=== PATIENT | female | born 2000 | race Caucasian/White ===

== ENCOUNTER 2020-06-22 16:05 | Emergency (ER) | payer BC, SELFPAY ==
[2020-06-22 17:05] VITALS: BP 122/77; PULSE 91; RESP 19; TEMP 36.8; O2SAT 100; BMI 32.3
--- NOTE | 2020-06-22 17:28 | HMH.EDUTC ---
[facility] [place] Clinical Impression: Allergic reaction Qualifiers: Encounter type: initial encounter Qualified Code(s): T78.40XA - Allergy, unspecified, initial encounter Contact dermatitis Qualifiers: Contact dermatitis type: allergic Contact dermatitis trigger: unspecified trigger Qualified Code(s): L23.9 - Allergic contact dermatitis, unspecified cause Disposition: Home, Self-Care Condition on Discharge: Good Instructions: DI for General Allergic Reactions Additional Instructions: Avoid contact with the offending substance (poison jj). Don't start the oral steroids until tomorrow. Follow up with your regular doctor. GO TO THE ER FOR ANY WORSENING SYMPTOMS OR CONCERNS Prescriptions: diphenhydrAMINE HCL [Diphenhydramine HCl] 25 mg PO Q6HP PRN #30 cap PRN Reason: Itching Transmission Status: Re[facility] by [id number] methylPREDNISolone [Medrol] 4 mg PO DIRECTED 6 Days #21 tab.ds.pk Transmission Status: Received by [id number] Referrals: Hitesh Bocanegra MD [Primary Care Provider] - Forms: Work/School Release Time of Disposition: 17:50 Medical Decision Making - Medical Records Medical records reviewed: No: I reviewed the patient's medical records. - Win Inquiry Pt receiving controlled substance: No Vital Signs: 06/22/20 17:05 06/22/20 17:56 Temperature 98.2 F 98.2 F Temperature Source Oral Pulse Rate 91 H Pulse Rate [Right Brachial] 91 H Respiratory Rate 19 19 Blood Pressure 122/77 Blood Pressure [Right Arm] 122/77 Blood Pressure Mean [Right Arm] 92 Blood Pressure Source [Right Arm] Automatic Cuff Blood Pressure Position [Right Arm] Sitting 02 Sat by Pulse Oximetry 100 Oxygen Delivery Method Room Air Orders (Tests/Meds): ED MEDICATIONS Discontinued Medications Generic Name Dose Route Start Last Admin Trade Name Freq PRN Reason Stop Dose Admin Methylprednisolone Sodium Succinate 125 mg 06/22/20 17:31 06/22/20 17:40 Methylprednisolone Sod Succ 125mg Vial IM 06/22/20 17:32 125 mg ONCE ONE Administration [facility] [place] - General Stated complaint: rash Time Seen by Provider: 06/22/20 17:29 Mode of Arrival: Ambulatory Source of Information: Patient Limitations: No Limitations Description of Symptoms (Recalled from Triage Doc. by RN): PATIENT C/O RASH TO NECK, CHEST AND FACE X 1 WEEK HEENT Symptoms (Recalled from RN notes): No Resp Symptoms (Recalled from RN notes): No Skin Symptoms (Recalled from RN notes): Yes MS Symptoms (Recalled from RN notes): No Functional Status (Recalled from RN notes): WNL - History of Present Illness Provider Complaint: She states that for the past 1 day she has had itching and rash of her face, anterior neck and upper chest. She believes that she has came into contact with something that she is allergic to. - Related Data Home Medications Medication Instructions Recorded Confirmed Metformin HCl 500 mg PO BID 06/22/20 06/22/20 Spironolactone [Spironolactone 25 mg PO DAILY 06/22/20 06/22/20 25mg Tablet] norgestimate-ethinyl estradioL 1 each PO DAILY 06/22/20 06/22/20 [Sprintec 28 Day Tablet] Previous Rx's Medication Instructions Recorded diphenhydrAMINE HCL 25 mg PO Q6HP PRN #30 cap 06/22/20 [Diphenhydramine HCl] methylPREDNISolone [Medrol] 4 mg PO DIRECTED 6 Days #21 06/22/20 tab.ds.pk Allergies Allergy/AdvReac Type Severity Reaction Status Date / Time No Known Allergies Allergy Verified 06/22/20 17:20 - Worker's Comp Is this a Worker's Comp case?: No [facility] History - Hepatitis A Screen Drug use history?: No High risk sexual behaviors?: No History of sexually transmitted infection?: No Currently employed?: No Childcare worker?: No Do you have indoor plumbing?: Yes Do you have electricity?: Yes Attestation statement:: This patient has been screened for Hepatitis A risk factors. I have reviewed the patient's past medical history: Yes - Social Histo
[2020-06-22 17:56] VITALS: BP 122/77; PULSE 91; RESP 19; TEMP 36.8; O2SAT 100
== END 2020-06-22 18:00 | disposition home or self-care (01) ==
PROVIDERS: Emergency Provider Nurse Practitioner Family; PCP Family Medicine
DX: L23.9 Allergic contact dermatitis, unspecified cause (principal); T78.40XA Allergy, unspecified, initial encounter; E11.9 Type 2 diabetes mellitus without complications; Z79.84 Long term (current) use of oral hypoglycemic drugs
CPT/HCPCS: 96372; 99202; G0463

== ENCOUNTER 2021-04-26 12:20 | Emergency (ER) | payer BC, SELFPAY ==
[2021-04-26] VITALS (7 sets, daily range): BP systolic 116–145; BP diastolic 59–85; PULSE 84–112; RESP 16–18; TEMP 36.8–36.9; O2SAT 95–100; BMI 32.3
--- NOTE | 2021-04-26 12:40 | HMH.EDGENADL ---
ED Disposition Clinical Impression: Epigastric pain Diarrhea Qualifiers: Diarrhea type: unspecified type Qualified Code(s): R19.7 - Diarrhea, unspecified Disposition: Home, Self-Care Condition on Discharge: Fair Instructions: DI for Acute Abdominal Pain, DI for Diarrhea and Traveler's Diarrhea -- Adult Additional Instructions: Pepcid as prescribed. Loperamide as needed for diarrhea. Additional instructions for ABDOMINAL PAIN: See your physician as soon as possible for further evaluation. Return immediately if worsening abdominal pain, bloody diarrhea, vomiting, shortness of breath, fever, vomiting of blood or abdominal distention. Prescriptions: Loperamide HCl [Loperamide] 2 mg PO TIDP PRN #10 tab PRN Reason: Diarrhea Transmission Status: [id number] Ondansetron [Zofran 4mg ODT] 4 mg PO TIDP PRN #10 tab PRN Reason: Nausea And Vomiting Transmission Status: P[id number] Referrals: Alexsander Calderón MD [Primary Care Provider] - - Critical Care Critical Care Time: No Attestation: On 04/26/21, the high probability of a clinically significant, sudden or life threatening deterioration of the following system(s) required my full and direct attention, intervention and personal management. The time I documented below is in addition to time spent performing reported procedures but includes the following listed in this critical care notation. Medical Decision Making - Win Inquiry Pt receiving controlled substance: No Vital Signs: 04/26/21 12:20 04/26/21 13:06 04/26/21 13:30 Temperature 98.4 F Temperature Source Oral Pulse Rate 100 H 87 Pulse Rate [Right Radial] 112 H Respiratory Rate 16 Blood Pressure 135/85 116/67 Blood Pressure [Right Arm] 145/84 H Blood Pressure Mean 98 83 Blood Pressure Mean [Right Arm] 104 Blood Pressure Source [Right Arm] Automatic Cuff Blood Pressure Position [Right Arm] Sitting 02 Sat by Pulse Oximetry 99 95 100 Oxygen Delivery Method Room Air Room Air Room Air 04/26/21 14:00 04/26/21 14:30 04/26/21 15:00 Temperature Temperature Source Pulse Rate 85 89 87 Pulse Rate [Right Radial] Respiratory Rate Blood Pressure 119/72 116/75 135/59 L Blood Pressure [Right Arm] Blood Pressure Mean 88 92 Blood Pressure Mean [Right Arm] Blood Pressure Source [Right Arm] Blood Pressure Position [Right Arm] 02 Sat by Pulse Oximetry 100 98 100 Oxygen Delivery Method - Lab Data Lab Results 04/26/21 12:29: Urine Color Yellow, Urine Appearance Clear, Urine pH 6.0, Ur Specific Aurora >= 1.030, Urine Protein Negative, Urine Glucose (UA) Negative, Urine Ketones Negative, Urine Blood 1+, Urine Nitrate Negative, Urine Bilirubin Negative, Urine Urobilinogen 0.2, Ur Leukocyte Esterase Negative, Urine RBC 3-5, Urine WBC None, Ur Squamous Epith Cells 3-5, Urine Bacteria Trace 04/26/21 12:29: Urine HCG, Qual Negative 04/26/21 12:37: WBC 13.0 H, RBC 4.79, Hgb 14.0, Hct 41.4, MCV 86.4, MCH 29.2, MCHC 33.8, RDW 13.3, Plt Count 436 H, MPV 7.4, Neut % (Auto) 80.5 H, Lymph % (Auto) 14.1, [place] % (Auto) 3.9, Eos % (Auto) 0.7, Baso % (Auto) 0.8, Neut # (Auto) 10.4 H, Lymph # (Auto) 1.8, [place] # (Auto) 0.5, Eos # (Auto) 0.1, Baso # (Auto) 0.1 04/26/21 12:37: Sodium 135 L, Potassium 4.1, Chloride 102, Carbon Dioxide 26, Anion Gap 11.1, BUN 7, Creatinine 0.60, Estimated Creat Clear 209, Estimated GFR 124, Est GFR ( Amer) 150, Glucose 97, Calcium 8.5, Total Bilirubin 0.4, AST 25, ALT 23, Alkaline Phosphatase 50, Total Protein 7.5, Albumin 4.7, Globulin 2.8, Albumin/Globulin Ratio 1.7, Lipase 38 Result diagrams: 04/26/21 12:37 04/26/21 12:37 Orders (Tests/Meds): ED MEDICATIONS Generic Name Dose Route Start Last Admin Trade Name Freq PRN Reason Stop Dose Admin Sodium Chloride 10 ml 04/26/21 12:38 Sodium Chloride 0.9% 10ml Flush Syringe IV 05/26/21 12:37 NEEDED PRN Maintain IV Site Sodium
--- NOTE | 2021-04-26 12:42 | PC.NURSE ---
Pt in room, iv and blood and urine done
--- NOTE | 2021-04-26 12:47 | CT_ITS ---
FINAL REPORT CLINICAL HISTORY: abdominal pain, luq pain FINDINGS: CT OF THE ABDOMEN AND PELVIS WITH CONTRAST Axial CT images of the abdomen and pelvis were obtained after the administration of intravenous contrast. Coronal reformatted images were also obtained and reviewed.This study was performed with techniques to keep radiation doses as low as reasonably achievable (ALARA). Individualized dose reduction techniques using automated exposure control or adjustment of mA and/or kV according to the patient's size were employed. Abdomen: The lung bases are clear. The heart is normal in size. The liver has an unremarkable appearance, without evidence of mass or biliary ductal dilatation. There is mild nonspecific gallbladder wall thickening. The spleen is unremarkable. No adrenal mass is present. The pancreas has an unremarkable appearance. The kidneys are normal, without evidence of mass or hydronephrosis. The aorta is normal in caliber. There is no free fluid or adenopathy. No mass or abnormal fluid collection is seen. Pelvis: The appendix is normal. The urinary bladder is unremarkable. No inflammatory process is seen. There is no evidence of mass or adenopathy. There is no evidence of bowel obstruction. IMPRESSION: Mild nonspecific gallbladder wall thickening. Reviewed, Interpreted and Dictated by Kike Hayden III, MD Transcribed by Kevin Ruiz Authenticated by Kike Hayden III, MD on 04/26/2021 02:42:37 PM [facility]
[2021-04-26 12:53] LABS: Basophils # 0.1 K/mm3 (0-0.2); Basophils % 0.8 % (0.1-2.0); Eosinophils # 0.1 K/mm3 (0.0-0.4); Eosinophils % 0.7 % (0.1-12.0); Hematocrit 41.4 % (37.0-47.0); Lymphocytes # 1.8 K/mm3 (0.7-4.5); Lymphocytes % 14.1 % (10-50); Mean Corpuscular HGB Conc 33.8 g/dL (31.8-35.4); Mean Corpuscular Hemoglobin 29.2 pg (27.0-31.2); Mean Corpuscular Volume 86.4 fl (81-99); Mean Platelet Volume 7.4 fl (7.4-10.4); Monocytes # 0.5 K/mm3 (0.1-1.0); Monocytes % 3.9 % (1.7-9.3); Neutrophils # 10.4 K/mm3 (1.8-7.8); Neutrophils % 80.5 % (37.0-80.0); Platelet Count 436 K/mm3 (142-424); Red Blood Count 4.79 M/mm3 (4.20-5.40); Red Cell Distribution Width 13.3 % (11.5-17.5)
[2021-04-26 12:54] LABS: Microscopic, Urine URINE MICROSCOPIC (MICROSCOPIC)
[2021-04-26 12:56] LABS: Appearance,Urine CLEAR (Clear); Bilirubin,Urine Negative (Negative); Blood, Urine 1+ (Negative); Color,Urine YELLOW (Yellow); Glucose,Urine (UA) Negative (Negative); Ketones,Urine Negative (Negative); Leukocyte Esterase,Urine Negative (Negative); Nitrate,Urine Negative (Negative); Protein,Urine Negative (Negative); Specific Gravity, Urine >= 1.030 (1.005-1.030); Urine Pregnancy, HCG Qual. Negative (Negative); Urobilinogen,Urine 0.2 EU/dl (0.2)
[2021-04-26 12:56] LABS: Chloride 102 mmol/L (98-107); Potassium 4.1 mmoL/L (3.5-5.1); Sodium 135 mmol/L (136-145)
[2021-04-26 12:58] LABS: Blood Urea Nitrogen 7 mg/dl (7-17); Creatinine Clearance Estimated 209 mL/min (50-200); Estimated Glomerular Filt Rate 124 ml/min (>60); GFR (African American) 150 ML/MIN (>60)
[2021-04-26 12:59] LABS: Alanine Aminotransferase 23 U/L (12-78); Albumin Level 4.7 g/dl (3.5-5.0); Albumin/Globulin Ratio 1.7 (1.1-1.8); Alkaline Phosphatase 50 U/L (38-126); Anion Gap 11.1 mEq/L (5-15); Aspartate Amino Transferase 25 U/L (14-36); Bilirubin,Total 0.4 mg/dl (0.2-1.3); Calcium 8.5 mg/dl (8.4-10.2); Carbon Dioxide 26 mmol/L (22.0-30.0); Globulin 2.8 g/dL (1.3-3.2); Glucose 97 mg/dl (74-100); Lipase 38 U/L (23-300); Total Protein,Serum 7.5 g/dl (6.3-8.2)
[2021-04-26 13:09] LABS: Bacteria,Urine Trace /lpf
--- NOTE | 2021-04-26 13:17 | PC.NURSE ---
pt gone to ct
--- NOTE | 2021-04-26 14:35 | PC.NURSE ---
pt in room
--- NOTE | 2021-04-26 14:54 | PC.NURSE ---
Notified rad of order for gallbladder US. Pt stated that she had some crackers at approx 0800 this AM and nothing PO since. Rad notified.
--- NOTE | 2021-04-26 15:13 | US_ITS ---
FINAL REPORT CLINICAL HISTORY: epigastric pain, thickened gb wall on CT FINDINGS: Sonographic images of the right upper quadrant were obtained. The pancreas is obscured. The liver is fatty infiltrated. There is a small amount of sludge in the gallbladder. There is no evidence of biliary ductal dilatation.The common duct measures 2 mm. Limited images of the right kidney are unremarkable. IMPRESSION: Fatty liver. Small amount of sludge in the gallbladder. Reviewed, Interpreted and Dictated by Kike Hayden III, MD Transcribed by Kevin Ruiz Authenticated by Kike Hayden III, MD on 04/26/2021 04:14:[address] [facility]
--- NOTE | 2021-04-26 15:34 | PC.NURSE ---
pt to radiology for ultrasound via wheelchair
== END 2021-04-26 16:24 | disposition home or self-care (01) ==
PROVIDERS: Emergency Provider Emergency Medicine; PCP Family Medicine
DX: R10.13 Epigastric pain (principal); R19.7 Diarrhea, unspecified
CPT/HCPCS: 74177; 76705; 80053; 81001; 81025; 83690; 85025; 96365; 96375; 99284; Q9967

== ENCOUNTER → 2022-03-14 12:04 | Outpatient (CLI) | payer BC, SELFPAY ==
--- NOTE | 2022-03-14 12:12 | XR_ITS ---
FINAL REPORT CLINICAL HISTORY: BACK PAIN FINDINGS: THORACIC SPINE SERIES. Three views were obtained. There is no acute fracture. The disc spaces are maintained. There is no malalignment. IMPRESSION: No acute process. Reviewed, Interpreted and Dictated by Alexsander Gu MD Transcribed by Kevin Ruiz Authenticated and [facility]
--- NOTE | 2022-03-14 12:12 | XR_ITS ---
FINAL REPORT CLINICAL HISTORY: BACK PAIN FINDINGS: Five views were obtained. There is no acute fracture. There is no malalignment. Mild disc space narrowing at L4-L5 and L5-S1. IMPRESSION: Mild degenerative disc at L4-L5 and L5-S1. Reviewed, Interpreted and Dictated by Alexsander Gu MD Transcribed by Kevin Ruiz Authenticated and [facility]
== END ==
LOC: RAD 12:07
PROVIDERS: PCP Psychiatry & Neurology Sleep Medicine; Visit Provider Nurse Practitioner Family
DX: M54.6 Pain in thoracic spine (principal); M54.50 Low back pain, unspecified
CPT/HCPCS: 72072; 72110

== ENCOUNTER → 2022-03-27 10:03 | Outpatient (CLI) | payer BC, SELFPAY ==
--- NOTE | 2022-03-27 10:27 | MR_ITS ---
FINAL REPORT CLINICAL HISTORY: BACK PAIN. low back pain worse on left side. left leg numbness. symptoms xyears. no injury or trauma. FINDINGS: Multiplanar MR imaging of the lumbar spine was performed without and with contrast. On the sagittal T2-weighted images, there is abnormal decreased signal in the L3-L4, L4-L5, and L5-S1 discs. The vertebral alignment is normal. The vertebrae are normal height. The conus has an unremarkable appearance. L1-2: No significant canal stenosis or neuroforaminal narrowing is seen. L2-3: No significant canal stenosis or neuroforaminal narrowing is seen. L3-4: Mild broad-based midline disc protrusion with mild spinal canal stenosis. L4-5: Moderate left paracentral disc protrusion with annular tear. Moderate compromise on the left lateral recess. Findings best seen on image 24 of series 7. L5-S1: Mild to moderate diffuse disc bulge with midline disc protrusion. Mild spinal canal stenosis. No significant canal stenosis or neuroforaminal narrowing is seen. No abnormal contrast enhancement is identified. IMPRESSION: Left paracentral disc protrusion with moderate compromise on the left lateral recess at L4-L5. Midline disc protrusion at L5-S1 with mild spinal canal stenosis. Reviewed, Interpreted and Dictated by Karel Gonsalves MD Transcribed by Kevin Ruiz Authenticated and [facility]
[2022-03-27 10:36] LABS: Blood Urea Nitrogen 8 mg/dl (7-17); Estimated Glomerular Filt Rate 123 ml/min (>60); GFR (African American) 149 ML/MIN (>60)
== END ==
PROVIDERS: PCP Psychiatry & Neurology Sleep Medicine; Visit Provider Nurse Practitioner Family
DX: M54.9 Dorsalgia, unspecified (principal); M54.50 Low back pain, unspecified
CPT/HCPCS: 36415; 72158; 76376; 82565; 84520; A9576

== ENCOUNTER 2024-09-13 10:29 | Emergency (ER) | payer BC, SELFPAY ==
--- OUTSIDE RECORDS SUMMARY | 2024-04-03 09:45 | XMS_ITS ---
Author Organization [facility] Address [address] [facility] [address] [place] [address] Care Team Providers Care Tie Fastener Name Role Phone Meghana Mcbride Unavailable [phone] Tera, Danay Unavailable [phone] REASON FOR VISIT sti testing/infection Medications Medication SIG (Take, Route, Frequency, Duration) Notes Start Date End Date Status metFORMIN HCl 500 MG Tablet 1 tablet wit h a meal Orally BID Active Loestrin 1/20 (21) 1-20 MG-MCG Tablet 1 tablet Orally Once a day; Duration: 90 days 08/29/2022 Active Spironolactone 25 MG Tablet 1 tablet Orally Active Social History Social History Drugs/Alcohol: Social Info Question Answer Notes Drugs Have you used drugs other than those for medical reasons in the past 12 months? No Alcohol Screen Did you have a drink containing alcohol in the past year? No Points 0 Interpretation Negative Additional Details Category Social Info Options Details Migrated Social History Drug/Alcohol: den ies/denies Tobacco Use: denies Encounters Encounter Location Date Provider Diagnosis [facility] [address] [place] [address] [address] [place] [address] 04/03/2024 Danay Haley Plan Of Treatment No Information Progress Notes * WILLIAMJorjeis HDOB:[birth year] (24 yo F)Acc No.[id number]:04/03/2024 Progress Note Patient: Ramiro Foy Provider: Eder Haley APRN :2000 A ge:24 Y S ex:Female Date:04/03/2024 Address:[address] [place] [address], [address], [place], [place] Subjective: * Chief Complaints: * S ti testing/infection * Medical History: PCOS BV HSIL * High Scaler History: P ap Smear History: D ate of Last Pap/HPV: 2 020 L ast Pap/HPV Results: A SCUS, Negative HPV H istory of Abnormal Pap Smears: Y es D iagnostic/Treatment: N one M enstrual History: C urrently having menstrual cycles? Y es L MP: L ength Between Cycles: I rregular L ength of Flow: 2 -7 Days S exual Activity/Contraception: E mat been sexually active? Y es C urrently sexually active? Y es * OB History: P regnancy History (GPA) Total Pregnancies 0 Full Term 0 Premature 0 AB. Induced 0 AB. Spontaneous 0 AB. Elective 0 AB. Therapeutic 0 Ectopics 0 Multiple Births 0 Living 0 Vaginal Deliveries 0 C-Sections 0 G P : 0 Para: 0 * Surgical History: back surgery * Family History: S iblings: leukemia. M aternal aunt: unknown metastatic CA. Diabetes (Other Family Member);. * Social History: T obacco Use: T obacco Use/Smoking S ROLY STATUS: Never smoker. M igrated Social History: D rug/Alcohol: denies/denies. Tobacco Use: denies. D rugs/Alcohol: D rugs H ave you used drugs other than those for medical reasons in the past 12 months? N o Alcohol Screen D id you have a drink containing alcohol in the past year? N o P oints 0 I nterpretation N egative * Medications: T akingLoestrin 1/20 (21)(Norethindrone Acet-Ethinyl Est) 1-20 MG-MCG Tablet 1 tablet Orally Once a day metFORMIN HCl 500 MG Tablet 1 tablet with a meal Orally BID Spironolactone 25 MG Tablet 1 tablet Orally Taking Loestrin 120 (21)(Norethindrone Acet-Ethinyl Est) 1-20 MG-MCG Tablet 1 tablet Orally Once a day Taking metFORMIN HCl 500 MG Tablet 1 tablet with a meal Orally BID Taking Spironolactone 25 MG Tablet 1 tablet Orally * Electronic signature of Giovana Haley APRN on 09/13/2024 at 10:49 AM EDT Sign off status: Pending Visit Status: N /S (No-Show) * Provider: Eder Haley APRN Date: 0 04/03/2024 Generated for Sidney sandoval/Niru/Bhupinder on: 0 09/13/2024 10:49 AM EDT
--- OUTSIDE RECORDS SUMMARY | 2024-04-14 09:45 | XMS_ITS ---
Author Organization [facility] Address [address] [place] [address] [address] [facility] [address] [place], [place] [id number] Care Team Providers Care Berry Planter Name Role Phone Bette Calderón Unavailable [phone] Jessie Geller Unavailable [phone] Allergies No Known Allergies REASON FOR VISIT 1 month ckup Social History Tobacco Use: Social History Observation Description Date Details (start date - stop date) Unknown CURRENT TOBACCO USE: Question Answer Notes Are you a: Uses tobacco in other forms Vape s Encounters Encounter Location Date [facility] [address] [facility] [address] [facility] [address] [place], [place] [id number] 04/14/2024 Jessie Geller Plan Of Treatment Next Appt Details Provider Name:Jessie Lama ond, 11/03/2024 01:15:00 PM, [address] [facility] [address], [address], [place], [place], [id number], Progress Notes * TERI DILCIAISDOB:2000 (24 yo F)Acc No.[id number]:04/14/2024 Progress Notes Patient: JAZZ HARRINGTON Provider: BETH Corcoran :2000 A ge:24 Y S ex:Female Date:04/14/2024 Address:[address] [place] [address] , [address], [place] Subjective: * Chief Complaints: * 1 . 1 month ckup. * HPI: H PI: 24 year old female presents with c/o Patient is here today for?Pt is here today for a schwduled 1 month check up. * ROS: A LLERGY: no C ough. n o R unny nose. R ESPIRATORY: no S hortness of breath. n o C hest pain. n o?Chest congestion. n o C ough. C ARDIOLOGY: no C hest pain. n o P alpitations. n o L eg edema. n o S hortness of breath. E NDOCRINOLOGY: Negative for f amily Hx of thyroid cancer. G ASTROENTEROLOGY: no N ausea. n o H eartburn. n o V omiting.?no A bdominal pain. n o D iarrhea. n o C onstipation. U ROLOGY: no D ifficulty urinating. n o B lood in urine. * Medical History: P COS. * Surgical History: b ilateral breast reduction 08/28/2023. * Family History: F ather: alive, diagnosed with Diabetes, Hypertension. M other: alive, diagnosed with Hypertension. P aternal Grand Father: , diagnosed with Diabetes, Hypertension. P aternal Grand Mother: , diagnosed with Diabetes, Hypertension. M aternal Grand Father: , diagnosed with Diabetes, Hypertension. M aternal Grand Mother: , diagnosed with Diabetes, Hypertension. 3 brother(s) , 3 sister(s) . . 09/2021 brother at 25 years DX with Leukemia; negative family history for thyroid cancer. * Social History: C URRENT TOBACCO USE A re you a: U ses tobacco in other forms Vapes. C affeine: yes, frequency: one cup of coffee per day. 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 Recreational drug use: no. Tobacco use other than smoking: yes, Vaping. Alcohol: Yes, occasional wine. Sexually active: yes. * Allergies: N .K.D.A. Objective: * Vitals: Assessment: Plan: * Treatment: * Images: Billing Information: * Visit Code: * Procedure Codes: * Electronic signature of Betsy Geller APRN on 09/13/2024 at 10:49 AM EDT Sign off status: Pending * Provider: BETH Corcoran Date: 04/14/2024 Generated for Sidney sandoval/Niru/Bhupinder on: 0 09/13/2024 10:49 AM EDT History and Physical Notes * HPI (History of Present Illness) Category Sub-Category Detail Notes Category Not es HPI Patient is here today for Pt is here today for a schwduled 1 month check up
--- OUTSIDE RECORDS SUMMARY | 2024-04-21 09:30 | XMS_ITS ---
[facility] Organization [facility] Address [address] [place] [id number] Care Team Providers Care Administrative Intern Name Role Phone Bette Calderón Unavailable [phone] Jessie Geller Unavailable [phone] Allergies No Known Allergies REASON FOR VISIT f/u on Zepbound Social History Tobacco Use: Social History Observation Description Date Details (start date - stop date) Unknown CURRENT TOBACCO USE: Question Answer Notes Are you a: Uses tobacco in other forms Vape s Encounters Encounter Location Date Provider [facility] [address] [facility] [address] [place], [place] [id number] 04/21/2024 Jessie Geller Plan Of Treatment Next Appt Details Provider Name:Jessie Lama ond, 11/03/2024 01:15:00 PM, [address], [address], [place], [place], [id number], Progress Notes * TERI DILCIAYONATANOB:2000 (24 yo F)Acc No.[id number]:04/21/2024 Progress Notes Patient: JAZZ HARRINGTON Provider: BETH Corcoran :2000 A ge:24 Y S ex:Female Date:04/21/2024 Address:[address] [place] [address] , [address] [place] [address] Subjective: * Chief Complaints: * 1 . f/u on Zepbound. * HPI: H PI: 24 year old female presents with c/o Here for follow up on:?Pt is here today to f/u on zepbound. * ROS: A LLERGY: no C ough. [...] Family History: F ather: alive, diagnosed with Hypertension, Diabetes. M other: alive, diagnosed with Hypertension. P [...] of coffee per day. 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 Recreational drug use: no. Tobacco use other than smoking: yes, Vaping. Alcohol: Yes, occasional wine. Sexually active: yes. * Allergies: N .K.D.A. Objective: * Vitals: Assessment: Plan: * Treatment: * Images: Billing Information: * Visit Code: * Procedure Codes: * Electronic signature of Betsy Geller APRN on 09/13/2024 at 10:49 AM EDT Sign off status: Pending * Provider: BETH Corcoran Date: 0 04/21/2024 Generated for Sidney sandoval/Niru/Bhupinder on: 0 09/13/2024 10:49 AM EDT History and Physical Notes * HPI (History of Present Illness) Category Sub-Category Detail Notes Category Not es HPI Here for follow up on: Pt is here today t o f/u on zepbound
--- OUTSIDE RECORDS SUMMARY | 2024-07-28 09:45 | XMS_ITS ---
Author Organization Christa Address [address] [facility] [address] [place] [id number] Care Team Providers Care Sample Room Supervisor Name Role Phone Bette Calderón Unavailable [phone] Jessie Geller Unavailable [phone] Allergies No Known Allergies REASON FOR VISIT check up Medications Medication SIG (Take, Route, Frequency, Duration) Notes Start Date End Date Status Sprintec 28 0.25-35 MG-MCG 1 tab(s) orally once a day Not-Taking Ondansetron 4 MG 1 tablet on the tong ue and allow to dissolve Orally every 8 hours as needed 07/18/2024 Active Spironolactone 25 MG TAKE 1 TABLET BY MO UT EVERY DAY; Duration: 90 days Active metFORMIN HCl 500 MG TAKE 1 TABLET BY MO UT TWICE A DAY; Duration: 30 Active Vistaril 25 MG 1 capsule Orally bid prn 07/09/2023 Active Zepbound 7.5 MG/0.5ML 0.5 mL Subcutaneou s once a week; Duration: 30 days 07/09/2024 Active Social History Tobacco Use: Social History Observation Description Date Details (start date - stop date) Unknown CURRENT TOBACCO USE: Question Answer Notes Are you a: Uses tobacco in other forms Vape s Vital Signs Weight 153 lbs 07/28/2024 Blood pressure systolic 110 mm Hg 07/29/19 25 Blood pressure diastolic 74 mm Hg 025 Heart Rate 89 /min 07/28/2024 Height 66.5 in 07/28/2024 BMI 24.32 kg/m2 07/28/2024 Encounters Encounter Location Date Provider Diagnosis [facility] [address] [facility] [address] [place] [id number] 07/28/2024 Jessie Geller Encounter for weight management Z76.89 and BMI 24.0-24.9, adult Z68.24 Assessments Encounter Date Diagnosis (ICD Code) Assessment Notes Treatment Notes Treatment Clinical Notes Section Notes 07/28/2024 Encounter for weight management (ICD-10 - Z76.89) Trial 7.5mg of Zepbound as she has had some adverse events from the increasing of dosage. Mentioned that this may be her maintenance dose. She was told she could skip a week if she needed to but to just go on how she feels. Continue Zofran as needed for nausea.; continue with exercise and healthy food choices 07/28/2024 BMI 24.0-24.9, adult (ICD-10 - Z68.24) Plan Of Treatment Medication Medication Name Sig Start Date Stop Date Notes Zepbound 7.5 MG/0.5ML 0.5 mL Subcutaneou s once a week; Duration: 30 days 07/09/2024 Treatment Notes Assessment Notes Encounter for weight management Trial 7. 5mg of Zepbound as she has had some adverse events from the increasing of dosage. Mentioned that this may be her maintenance dose. She was told she could skip a week if she needed to but to just go on how she feels. Continue Zofran as needed for nausea.; continue with exercise and healthy food choices Next Appt Details Follow Up: 3 Months,and prn, Reason: Provider Name:Jessie dee, 11/03/2024 01:15:00 PM, [address], [address] [place] [address], [id number], Progress Notes * DAVIS WILLIAMSONOB:2000 (24 yo F)Acc No.[id number]:07/28/2024 Progress Notes Patient: JAZZ HARRINGTON Provider: BETH Corcorna :2000 A ge:24 Y S ex:Female Date:07/28/2024 Address:[address] [place] [address] , [address], [id number] Subjective: * Chief Complaints: * 1 . Check up. * HPI: H PI: 24 year old female presents with c/o Patient is here today for?Pt is here today for a check up. Pt sts she is doing well and has no concerns at this time.? * ROS: R ESPIRATORY: no S hortness of breath. n o C hest pain. n o?Chest congestion. n o C ough. G ASTROENTEROLOGY: no N ausea. n o H eartburn. n o V omiting.?no A bdominal pain. n o D iarrhea. n o C onstipation. U ROLOGY: no D ifficulty urinating. n o B lood in urine. H ad nausea, vomiting, and some diarrhea last week and went to the ER. She said that she was shaking and anxious at this time. E R told her that her pancreas was inflamed but she had a virus the week prior. Has not had her Zepbound in a week. Requesting to reduce her Zepbound dose as she had issues with the 10mg as well.Hesitant to go up and stay at current dose as she already deals with anxiety. * Medical History: P COS. * Surgical History: b ilateral breast reduction 08/28/2023. * Family History: F ather: alive, diagnosed with Hypertension, Diabetes. M other: alive, diagnosed with Hypertension. P aternal Grand Father: , diagnosed with Hypertension, Diabetes. P aternal Grand Mother: , diagnosed with Hypertension, Diabetes. M aternal Grand Father: , diagnosed with Hypertension, Diabetes. M aternal Grand Mother: , diagnosed with Hypertension, Diabetes. 3 brother(s) , 3 sister(s) . . 09/2021 brother at 25 years DX with Leukemia; negative family history for thyroid cancer. * Social History: C URRENT TOBACCO USE A re you a: U ses tobacco in other forms Vapes. C affeine: yes, frequency: one cup of coffee per day. 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 Recreational drug use: no. Tobacco use other than smoking: yes, Vaping. Alcohol: Yes, occasional wine. Sexually active: yes. * Medications: T aking Vistaril 25 MG Capsule 1 capsule Orally bid prn , Taking metFORMIN HCl 500 MG Tablet TAKE 1 TABLET BY MOUTH TWICE A DAY , Taking Spironolactone 25 MG Tablet TAKE 1 TABLET BY MOUTH EVERY DAY , Taking Zepbound 12.5 MG/0.5ML Solution Auto-injector 0.5 mL Subcutaneous once a week , Taking Ondansetron 4 MG Tablet Disintegrating 1 tablet on the tongue and allow to dissolve Orally every 8 hours as needed , Not-Taking Sprintec 28 0.25-35 MG-MCG Tablet 1 tab(s) orally once a day , Medication List reviewed and reconciled with the patient * Allergies: N .K.D.A. Objective: * Vitals: W t: 153, Temp: 98.6, BP: 110/74, HR: 89, Nurse: mm, Ht: 66.5, BMI:24.32. * Examination: G eneral Examination: General Appearance: a ppears healthy, NAD, pleasant. H EENT: n ormal. H eart: R RR. L ungs: n ormal, clear to auscultation. A bdomen: n ormal, nontender, soft, bowel sounds present. S kin: n ormal, no rash, color good. Peripheral pulses: n ormal (2+) bilaterally. N o tenderness in abdomen today. Assessment: * Assessment: 1. E ncounter for weight management - Z76.89 (Primary) 2 . B TN 24.0-24.9, adult - Z68.24 Plan: * Treatment: * Procedure Codes: G 8420 BMI<30 AND >=22 CALC & DOCU, G8783 BP SCR PRFRM RCMDD DEFIND SCR INTVL, G8752 MOST RECENT SYSTOLIC BP < 140MM HG, G8754 MOST RECENT DIASTOLIC BP < 90MM HG * Follow Up: 3 Months,and prn * Images: Billing Information: * Visit Code: 14147 Office Visit, Est Pt., Level 3. * Procedure Codes: G8420 BMI<30 AND >=22 CALC & DOCU. G8783 BP SCR PRFRM RCMDD DEFIND SCR INTVL. G8752 MOST RECENT SYSTOLIC BP < 140MM HG. G8754 MOST RECENT DIASTOLIC BP < 90MM HG. * Electronic signature of Betsy Geller APRN on 09/13/2024 at 10:49 AM EDT Sign off status: Pending * Provider: BETH Corcoran Date: 0 07/28/2024 Generated for Sidney sandoval/Niru/eTransmitting on: 0 09/13/2024 10:49 AM EDT History and Physical Notes * HPI (History of Present Illness) Category Sub-Category Detail Notes Category Not es HPI Patient is here today for Pt is here today for a check up. Pt sts she is doing well and has no concerns at this time Examination Category Sub-Category Detail Notes Category Not es General Examination HEENT: normal No tende rness in abdomen today Heart: RRR Lungs: normal, clear to aus cultation Abdomen: normal, nontender, s oft, bowel sounds present General Appearance: appears healthy, NAD , pleasant Skin: normal, no rash, col or good Peripheral pulses: normal (2+) bilatera lly
[2024-09-13 10:39] VITALS: BP 158/101; PULSE 164; RESP 19; TEMP 36.8; O2SAT 100; BMI 24.7
--- NOTE | 2024-09-13 10:41 | ECG_ITS ---
APPROVED REPORT Exam: Resting ECG HR:169 bpm ECG Measurements Heart Rate 169 AXES QRSd 74 QRS 76 QT 267 T 76 QTc 359 Conclusion SUPRAVENTRICULAR TACHYCARDIA NONSPECIFIC ST & T-WAVE ABNORMALITY CRITICAL TEST RESULT Electronically signed by : NADINE SIFUENTES, 09/17/2024 17:39:12
--- NOTE | 2024-09-13 10:43 | ECG_ITS ---
APPROVED REPORT Exam: Resting ECG HR:150 bpm ECG Measurements Heart Rate 150 AXES IA 94 P 51 QRSd 73 QRS 74 QT 313 T 80 QTc 399 Conclusion SINUS TACHYCARDIA WITH SHORT IA INTERVAL, POSSIBLE ATRIAL FLUTTER NONSPECIFIC ST & T-WAVE ABNORMALITY CRITICAL TEST RESULT UNCONFIRMED REPORT Electronically signed by : Jude Cornell, 09/13/2024 15:20:31
--- OUTSIDE RECORDS SUMMARY | 2024-09-13 10:49 | XMS_ITS | Patient Health Record ---
Author Organization [facility] Address [address] [facility] [address] [place] [id number] Care Team Providers Care Timber Estimator Name Role Phone StephaneBette Marco A Unavailable [phone] Carlito Christi Shade Unavailable [phone] Jessie Geller Unavailable [phone] Alisha Coon Unavailable [phone] Allergies No Known Allergies Results Component Value Reference Range Notes CBC Venipuncture (in house) Reviewed date:03/19/2024 06:48:34 AM Interpretation: Performing Lab: Notes/Report: wbc 9.8 3.5 - 10 lymph 25.7 15 - 50 mid 6.6 2 - 15 gran 67.7 35 - 80 rbc 4.62 3.5 - 5.5 hgb 13.7 11.5 - 16.5 hct 38.7 35 - 55 mcv 83.8 75 - 100 mch 29.6 25 - 35 mchc 35.3 31 - 38 platlet 410 100 - 400 Glycohemoglobin A1c (in hous e) Reviewed date:03/17/2024 02:57:06 PM Interpretation:4.9% Performing Lab: Notes/Report: 4.9% glycohemoglobin 4.9% 5 - 6.5 % P-Comprehensive Metabolic Pa daniel (CMP) Reviewed date:03/19/2024 06:47:19 AM Interpretation:Normal Performing Lab: Notes/Report: Test performed by [facility], [facility] [address] [place] [address] , [address], [place] [address] Giancarlo Jones MD, Unloading Checker CLIA: [id number] Sodium 140 135-145 mmol/L Potassium 4.4 3.5-5.3 mmol/L Chloride 106 97-108 mmol/L CO2 26 22-32 mmol/L Glucose 85 65-99 mg/dL BUN 8 6-20 mg/dL Creatinine 0.60 0.50-1.00 mg/dL Calcium 9.7 8.6-10.4 mg/dL eGFR by Creatinine 127 >59 mL/min/1.73m2 Protein 6.6 6.0-8.3 g/dL Albumin 4.4 3.5-5.3 g/dL Alkaline Phosphatase 62 35-121 IU/L ALT (SGPT) 17 <5-47 IU/L AST (SGOT) 13 <5-40 IU/L Bilirubin, Total <0.2 <0.2-1.2 mg/dL A/G Ratio 2.0 1.1-2.5 P-TSH Reviewed date:03/19/2024 06:47:51 AM Interpretation:1.66 Performing Lab: Notes/Report: Test performed by [facility] [address] [place] [address] , [address], [place] [address] Giancarlo Jones MD, Unloading Checker CLIA: [id number] TSH 1.66 0.43-5.25 mU/L Reason For Referral No Information Medications Medication SIG (Take, Route, Frequency, Duration) Notes Start Date End Date Status Zepbound 5 MG/0.5ML 0.5 mL Subcutaneous once a week 07/09/2024 Active Sprintec 28 0.25-35 MG-MCG 1 tab(s) orally once a day Not-Taking Ondansetron 4 MG 1 tablet on the tong ue and allow to dissolve Orally every 8 hours as needed 07/18/2024 Active Spironolactone 25 MG TAKE 1 TABLET BY [facility] EVERY DAY; Duration: 90 days Active metFORMIN HCl 500 MG TAKE 1 TABLET BY [facility] TWICE A DAY; Duration: 30 Active Vistaril 25 MG 1 capsule Orally bid prn 07/09/2023 Active Immunizations Vaccine Route Administration Date Status Comme nts Gardasil 9 Unknown 06/20/2018 Administered Social History Tobacco Use: Social History Observation Description Date Details (start date - stop date) Unknown CURRENT TOBACCO USE: Question Answer Notes Are you a: Uses tobacco in other forms Vape s Problems Problem Type SNOMED Code ICD Code Onset Dates Problem Status W/U Status Risk Notes Problem Gastroesophageal reflux disease (998664521) GERD (gastroesophage al reflux disease) (K21.9) Active confirmed Problem Insomnia (260513224) Insomnia (G47.00) Active confirmed Problem Panic disorder (426180490) Panic attacks (F41.0) Active confirmed Problem Polycystic ovary syndrome (disorder) (685588027) PCOS (polycystic ovarian syndrome) (E28.2) Active confirmed Problem Polycystic ovary disease (E28.2) Active confirmed Problem Primary hypertension (01992449) Primary hypertension (I10) Active confirmed Vital Signs Heart Rate 89 /min 07/28/2024 Blood pressure diastolic 74 mm Hg 07/28/2024 Height 66.5 in 07/28/2024 Blood pressure systolic 110 mm Hg 07/28/2024 Weight 153 lbs 07/28/2024 BMI 24.32 kg/m2 07/28/2024 Encounters Encounter Location Date Provider Diagnosis [facility] [address] [facility] [address] [place], [place] [id number] 03/17/2024 Jessie Geller Thyroid disorder screen Z13.29 ; Diabetes mellitus screening Z13.1 ; Weight gain R63.5 and PCOS (polycystic ovarian syndrome) E28.2 [facility] [address] [facility] [address] [place], [place] [id number] 07/28/2024 Jessie Geller Encounter for weight management Z76.89 and BMI 24.0-24.9, adult Z68.24 [facility] [address] [facility] [address] [place], [place] [phone] 03/17/2024 Bette Calderón [facility] [address] [facility] [address] [place], [place] [id number] 04/18/2024 Alisha Coon Weight gain R63.5 [facility] [address] [facility] [address] [place] [id number] 05/13/2024 Bette Calderón [facility] [address] [place], [place] [id number] 06/11/2024 Bette Calderón [facility] [address] [facility] [address] [place], [place] [id number] 07/09/2024 Bette Caldernó [facility] [address] [facility] [address] [place], [place] [id number] 07/18/2024 Jessie Geller [facility] [address] [facility] 36 [facility] [address] [place] [id number] 08/27/2024 Jessie Geller Encounter for weight management Z76.89 Assessments Encounter Date Diagnosis (ICD Code) Assessment Notes Treatment Notes Treatment Clinical Notes Section Notes 04/18/2024 Weight gain (ICD-10 - R63.5) 07/28/2024 BMI 24.0-24.9, adult (ICD-10 - Z68.24) 07/28/2024 Encounter for weight management (ICD-10 - [...] continue with exercise and healthy food choices 08/27/2024 Encounter for weight management (ICD-10 - Z76.89) 03/17/2024 Thyroid disorder screen (ICD-10 - Z13.29) 03/17/2024 Diabetes mellitus screening (ICD-10 - Z13.1) 03/17/2024 Weight gain (ICD-10 - R63.5) she works out regular; she no longer vaps; she does not drink ETOH; discussed healthy eating; FU in 4 weeks after starting med 03/17/2024 PCOS (polycystic ovarian syndrome) (ICD-10 - E28.2) Plan Of Treatment Next Appt Details Provider Name:Jessie dee, 11/03/2024 01:15:00 PM, [address] [facility] 36 [facility], [address], [place], [id number], Insurance Providers Payer Name Payer Address Payer Phone Subscriber Number Group Number Insured Name Patient Relationship to Insured Coverage Start Date Coverage End Date DEYSI COLE [address] [place] [address] [id number] JAZZ REDDY Self - patient is the insured Medical (General) History Medical History History ICD Code PCOS Surgical History Surgery Date(Month/Year) bilateral breast reduction 08/28/2023
--- OUTSIDE RECORDS SUMMARY | 2024-09-13 10:49 | XMS_ITS | Data Portability ---
Author Organization [facility] - Jayden Rhodes c, [facility] [place] [facility] Address [address] [facility] [address] [place] [address] Care Team Providers Care Merchant Police Name Role Phone LUCIUS DICKINSON Referring Provider [phone] Bette LORENZO Primary Care Provider Assessment Encounter Date Assessment Date Assessment LastModified by Organization Details LastModified Time 04/17/2022 04/17/2022 Imaging: [facility] L-spine MRI with and without contrast 03-27-2022-radiology report and imaging reviewed by myself and Dr. 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 Patient has significant left lateral recess at L4-5. MRI findings correlate with patient's complaint. Dr. Mayo offered a L4-5 discectomy and discussed vusg-al-ufog of the procedure along with surgical risks and postsurgical restrictions. Patient works at [email or web address] and is currently on short-term disability. Patient would like to proceed with discectomy and verbalized understanding of risks. She will meet with our business unit leader today. We will provide a note to keep patient off from work prior to surgery. Patient verbalized understanding of instructions and is agreeable to plan. -Seen by Dr. Gael suttonf myself [email or web address] Not available 04/17/2022 15:03:24 07/28/2022 07/28/2022 ASSESSMENT: Ms. Thomas returns 3 months postop from her left L4-[address] Mayo on April 27, 2022 with reports of recently increasing low back pain, sensitivity to touch over her incision, and very occasional left lateral thigh pain. IMAGING: No new imaging for review Nurse practitioner visit PLAN: Medrol Dosepak dispense 1 with no refills take as directed I spoke with Ms. Thomas that is very normal to have these occasional flareups after surgery they could just be underlying inflammation that she is experiencing. Her incision looks well-healed and the small bump that she appreciates looks as though it could possibly have been a pimple or a small stitch abscess but there is no active drainage, swelling, or streaking appreciated. Unfortunately, she was scheduled on a day when Dr. Mayo is in the OR so I will discuss this case with Dr. Mayo and see how she would like to move forward. I am going to put Ms. Thomas on a Medrol Dosepak for the next several days. She is instructed to take this as directed and not to use any other anti-inflammatorie s while she is completing the steroid pack. We discussed that if she feels comfortable returning to work that was certainly Dr. Mayo's plan after her last office visit in May of this year. I will discuss this case with Dr. Mayo and we will contact her on Sunday to let her know if there is any other recommendations moving forward. She verbalized understanding of all these instructions and is agreeable to this plan. She has no further questions or concerns at this time. She is satisfied with this plan of care. [email or web address] Not available 07/28/2022 12:25:39 Plan of Treatment Reminders Order Date Submit Date Provider Last Modified By Organization Details Last Modified Time Details Appointments None recorded. Lab CT + NG + TV, DNA, urine/swab 2021 022 [facility] [address] [place] [address], [id number], 16:59:54 bacterial vaginosis + vaginitis panel, vaginal 2021 022 [facility] [address] [place] [address], [id number], 16:59:57 bacterial vaginosis panel, vaginal 2021 022 [facility] [address] [place] [address], [id number], 2 16:59:56 Referral None recorded. Procedures None recorded. Surgeries None recorded. Imaging None recorded. Medication Orders Medrol (Henry) 4 mg tablets in a dose pack [address] [facility]acy #[id number], [address] [place], [address], 3 12:19:37 Ortho Micronor 0.35 mg tablet [address]/Pharmacy #[id number], [address] [place], [address], 3 12:00:37 Patient TargetsNo targets recorded. Patient InstructionsNo instructions recorded. Reason for Referral None Reported. Results Created Date Observation Date Name Description Value Unit Range Abnormal Flag Note LastModifiedBy Organization Detail LastModifiedTime 05/17/19 22 05/19/2021 LEUKO RRHEA PANEL BY REAL- TIME PCR chlamydia trachomatis by real-time PCR (reflex to azithromycin resistance by angie sandoval) NEGATI VE normal Swab- 1 Cerv End Not Available [facility] [address] [place] [address], [id number], 05/19/2021 16:59:54 05/17/19 22 05/19/2021 LEUKO RRHEA PANEL BY REAL- TIME PCR trichomonas vaginalis by real-time PCR (reflex to metronidazol e resistance) NEGATI VE normal Swab- 1 Cerv End Not Available [facility] [address] [place] [address], [id number], 05/19/2021 16:59:54 05/17/19 22 05/19/2021 LEUKO RRHEA PANEL BY REAL- TIME PCR neisseria gonorrhoeae by real-time PCR (reflex to antibiotic resistance by molecular analysis) NEGATI VE normal Swab- 1 Cerv End Not Available [facility] [address] [place] [address], [id number], 05/19/2021 16:59:54 05/17/19 22 05/19/2021 BACTE RIAL VAGIN OSIS PANEL (WITH LACTO BACIL JAIME PROFI LING) BY gardnerella vaginalis by real-time PCR NEGATI VE normal Swab- 1 Cerv End Not Available [facility]) [address] [place] [address], [id number], 05/19/2021 16:59:56 05/17/19 22 05/19/2021 BACTE RIAL VAGIN OSIS PANEL (WITH LACTO BACIL JAIME PROFI LING) BY atopobium vaginae by real-time PCR NEGATI VE normal Swab- 1 Cerv End Not Available [facility]) [address] [place] [address], [id number], 05/19/2021 16:59:56 05/17/19 22 05/19/2021 BACTE RIAL VAGIN OSIS PANEL (WITH LACTO BACIL JAIME PROFI LING) BY bacterial vaginosis associated bacterium 2 (bvab2) by real-time PCR NEGATI VE normal Swab- 1 Cerv End Not Available [facility]) [address] [place] [address], [id number], 05/19/2021 16:59:56 05/17/19 22 05/19/2021 BACTE RIAL VAGIN OSIS PANEL (WITH LACTO BACIL JAIME PROFI LING) BY megasphaera species (type 1 and type 2) by real-time PCR NEGATI VE (TYPE1 ,TYPE2 ) normal Swab- 1 Cerv End Type1 :Nega tive Type2 :Nega tive. Not Available [facility]) [address] [place] [address], [id number], 05/19/2021 16:59:56 05/17/19 22 05/19/2021 BACTE RIAL VAGIN OSIS PANEL (WITH LACTO BACIL JAIME PROFI LING) BY lactobacillu s (bv & av panel) by real time PCR SEE COMMEN T normal Swab- 1 Cerv End L.cri spatu s: Posit asia L.hoa senii : Posit asia L.gas seri : Negat asia L.ine rs : Posit asia. Not Available [facility] [address] [place] [address], [id number], 05/19/2021 16:59:56 05/17/19 22 05/19/2021 AEROB IC VAGIN ITIS PANEL (GBS S. AUREU S E.COL I E. FAECA LIS group B streptococcu s (gbs) by real-time PCR NEGATI VE normal Swab- 1 Cerv End Not Available [facility] ([facility]) [address] [place] [address], [id number], 05/19/2021 16:59:57 05/17/19 22 05/19/2021 AEROB IC VAGIN ITIS PANEL (GBS S. AUREU S E.COL I E. FAECA LIS escherichia coli by real-time PCR NEGATI VE normal Swab- 1 Cerv End Not Available [facility] ([facility]) [address] [place] [address], [id number], 05/19/2021 16:59:57 05/17/19 22 05/19/2021 AEROB IC VAGIN ITIS PANEL (GBS S. AUREU S E.COL I E. FAECA LIS enterococcus faecalis by real-time PCR POSITI VE abnormal Swab- 1 Cerv End Not Available [facility]) [address] [place] [address], [id number], 05/19/2021 16:59:57 05/17/19 22 05/19/2021 AEROB IC VAGIN ITIS PANEL (GBS S. AUREU S E.COL I E. FAECA LIS lactobacillu s (bv & av panel) by real time PCR SEE COMMEN T normal Swab- 1 Cerv End L.cri spatu s: Posit asia L.hoa senii : Posit asia L.gas seri : Negat asia L.ine rs : Posit asia. Not Available [facility] ([facility]) [address] [place] [address], [id number], 05/19/2021 16:59:57 05/17/19 22 05/19/2021 AEROB IC VAGIN ITIS PANEL (GBS S. AUREU S E.COL I E. FAECA LIS staphylococc us aureus by real time PCR NEGATI VE normal Swab- 1 Cerv End Not Available [facility] ([facility]) [address] [place] [address], [place], [address], 05/19/2021 16:59:57 03/29/19 23 03/27/2022 MRI, lumba r spine , w/wo contr ast No observ ation record ed. [email or web address] Not Available 2022 14:57:07 03/29/19 23 03/14/2022 XR, lumba r spine No observ ation record ed. [email or web address] Not Available 2022 14:57:47 04/18/19 23 03/14/2022 XR, lumba r spine No observ ation record ed. BARCODE Not Available 2022 10:51:08 04/18/19 23 03/14/2022 XR, thora cic spine , 3 view No observ ation record ed. BARCODE Not Available 2022 11:45:13 04/18/19 23 03/27/2022 MRI, lumba r spine , w/wo contr ast No observ ation record ed. BARCODE Not Available 2022 11:45:13 Result Notes None recorded. Problems No Known Problems Procedures Surgical History Date Name Laterality Status Provider Name and Address Organization Details Recorded Time 3 discectomy of spine completed Bhargavi Camargo [facility] 07/28/2022 12:01:44 9 Pap Smear collection completed LUIS NEWMAN, BOX OFFICE CLERK [address] [place], [address], [facility] 06/20/2018 17:30:02 8 Evening/Weeken d/Holiday Services completed Jessie Urban [facility] 10/14/2017 10:49:44 7 Evening/Weeken d/Holiday Services completed Sally [facility] 01/29/2017 18:48:22 Imaging Results None recorded. Procedure Notes None recorded. Medical Equipment None Reported. Allergies No known drug allergies Medications Name Sig Start Date Stop Date Status Note LastModified by Organization Details LastModified Time cyclobenzap rine 10 mg tablet TAKE 1 TABLET BY MOUTH THREE TIMES A DAY FOR 10 DAYS 07/28 completed Not Available Not Available Not Available metformin 500 mg tablet TAKE 1 TABLET BY MOUTH TWICE A DAY active Not Available Not Available No t Available Augmentin 875 mg-125 mg tablet Take 1 tablet every 12 hours by oral route for 7 days. 06/10 completed Not Available Not Available Not Available norgestimat e 0.25 mg-ethinyl estradiol 0.035 mg tablet TAKE 1 TABLET BY MOUTH EVERY DAY 07/28 completed Not Available Not Available Not Available Keflex 500 mg capsule Take 1 capsule 3 times a day by oral route with meals for 10 days. 08/28 completed Not Available Not Available Not Available metronidazo le 0.75 % (37.5 mg/5 gram) vaginal gel APPLY 1 APPLICATO RFUL VAGINALLY AT BEDTIME FOR 5 DAYS 07/28 completed Not Available Not Available Not Available Diflucan 150 mg tablet take one tablet today and then repeat dose in 72 hours 06/15 completed Not Available Not Available Not Available metronidazo le 500 mg tablet TAKE 1 TABLET BY MOUTH TWICE A DAY FOR 7 DAYS 07/28 completed Not Available Not Available Not Available spironolact one 25 mg tablet TAKE 1 TABLET BY MOUTH EVERY DAY active Not Available Not Available No t Available Zofran 4 mg tablet Take 1 tablet every 8 hours by oral route as needed for 4 days. 05/16 completed Not Available Not Available Not Available hydrocodone 7.5 mg-acetamin ophen 325 mg tablet TAKE 1 TABLET BY MOUTH EVERY 6 HOURS NEEDED FOR PAIN 07/28 completed Not Available Not Available Not Available Robaxin-750 750 mg tablet Take 1 tablet 3 times a day by oral route as needed for 10 days. 06/20 completed Not Available Not Available Not Available docusate sodium 100 mg capsule TAKE 1 CAPSULE BY MOUTH TWICE A DAY NEEDED 07/28 completed Not Available Not Available Not Available diclofenac sodium 75 mg tablet,brigitte yed release Take 1 tablet twice a day by oral route as needed for 15 days. 07/28 completed Not Available Not Available Not Available clindamycin 2 % vaginal cream INSERT 1 APPLICATO RFUL VAGINALLY EVERY DAY AT BEDTIME FOR 7 DAYS 07/28 completed Not Available Not Available Not Available mupirocin 2 % topical ointment APPLY TWICE DAILY TO INNER NOSTRILS STARTING 5 DAYS BEFORE SURGERY 07/28 completed Not Available Not Available Not Available methylpredn isolone 4 mg tablets in a dose pack TAKE 6 TABLETS ON DAY 1 DIRECTED ON PACKAGE AND DECREASE BY 1 TAB EACH DAY FOR A TOTAL OF 6 DAYS active Not Available Not Available No t Available ondansetron 4 mg disintegrat ing tablet TAKE 1 TABLET BY MOUTH EVERY 6 HOURS NEEDED 07/28 completed Not Available Not Available Not Available cefdinir 300 mg capsule TAKE 1 CAPSULE BY MOUTH 2 TIMES A DAY FOR 10 DAYS. 07/28 completed Not Available Not Available Not Available oxycodone 5 mg tablet TAKE 1 TABLET BY MOUTH EVERY 4 TO 6 HOURS NEEDED FOR PAIN 07/28 completed Not Available Not Available Not Available Ortho Micronor 0.35 mg tablet Take 1 tablet every day by oral route for 28 days. 07/28 completed Not Available Not Available Not Available Bactrim DS 800 mg-160 mg tablet Take 1 tablet every 12 hours by oral route. 01/29 completed Not Available Not Available Not Available azithromyci n 500 mg tablet TAKE TWO TABLETS IN ONE DOSE 06/15 completed Not Available Not Available Not Available Vitals Date Recorded Body height Body mass index (BMI) Body weight Heart rate Systolic And Diastolic Provider Name and Address Organization Details Last Updated DateTime 04/17/2022 167.64 cm 32.9 kg/m2 23657.84 g 95 /min 153/90 mm[Hg] Jeannie Maynard [facility] 04/17/2022 14:05:53 Date Recorded Body height Body mass index (BMI) Body weight Systolic And Diastolic Provider Name and Address Organization Details Last Updated DateTime 05/16/2021 167.64 cm 32.4 kg/m2 51345.07 g 140/96 mm[Hg] Sandie Parrish [facility] 05/16/2021 15:31:17 Date Recorded Body height Systolic And Diastolic Provider Name and Address Organization Details Last Updated DateTime 06/05/2022 167.64 cm 130/84 mm[Hg] Pa Church [facility] 06/05/2022 09:31:31 Date Recorded Body height Body mass index (BMI) Body weight Heart rate Oxygen saturation Oxygen saturation in Arterial blood by Pulse oximetry Systolic And Diastolic Provider Name and Address Organization Details Last Updated DateTime 3 167.64 cm 32 kg/m2 12449.2 9 g 88 /min 98 % 98 % 142/94 mm[Hg] Bhargavi Ghoshtcher [facility] 3 11:59:57 Social History Question Answer Notes LastModified by PAYMILL Details LastModified Time Tobacco Smoking Status [facility] 16:21:13 How Much Tobacco Do You Chew? None Information not available 06/10/2018 What Was The Date Of Your Most Recent Tobacco Screening? 07/28/2022 [email or web address] Information not available 07/28/2022 How Much Tobacco Do You Smoke? No Information not available 06/10/2018 How Many Years Have You Smoked Tobacco? 1 Information not available 11/17/2019 Sex: Unknown Functional Status Question Answer Note LastModified by PAYMILL Details LastModified Time Do you or have you ever used smokeless tobacco? Never used smokeless tobacco Information not available 11/17/2019 Do you or have you ever used e-cigarettes or vape? Former user of electronic cigarettes apurdie Information not available 04/17/2022 Mental Status None recorded. Family History Relationship Description Onset Age of this Age Resolved Age Notes LastModified by Organization Details LastModified Time Father Diabetes mellitus hvallance Not available 2017 16:20:06 Father Hypertensive disorder hvallance Not available 2017 16:20:35 Maternal Grandmother Diabetes mellitus hvallance Not available 2017 16:20:16 Maternal Grandmother Hypertensive disorder hvallance Not available 2017 16:20:52 Paternal Grandmother Diabetes mellitus hvallance Not available 2017 16:20:23 Paternal Grandmother Hypertensive disorder hvallance Not available 2017 16:21:02 Mother Hypertensive disorder hvallance Not available 2017 16:20:41 Maternal Grandfather Hypertensive disorder hvallance Not available 2017 16:20:46 Paternal Grandfather Hypertensive disorder hvallance Not available 2017 16:20:56 Unspecified Relation Malignant neoplastic disease apurdie Not available 2022 14:09:04 Unspecified Relation Myocardial infarction apurdie Not available 04/17 14:09:09 Unspecified Relation Back problem apurdie Not available 03/23 14:09:14 Medical History Condition Response Allergies/Hayfever Y Other AIDS/HIV N Asthma N Gynecological History Statement/Question Response Flow Heavy Regular Cycles N Date of LMP 04/18/2021 Sexually Active? Y STIs/STDs N HPV Vaccine N Date of Last Pap Smear Duration of Flow (days) 7 Current Control Method BCPs LMP Unknown Obstetrics History GPAL:G 0 P 0 0 0 0 Immunizations Vaccine Type Date Status Note Provider Nam e and Address Organization Details Recorded Time HPV9 9 completed Not Available [facility] 03/08/2019 02:47:21 Influenza, split virus, quadrivalent, preservative 0 completed Not Available [facility] 07/28/2022 11:24:24 Past Encounters Encounter ID Performer Location Encounter Start Date Encounter Closed Date Diagnosis/Indication Diagnosis SNOMED-CT Code Diagnosis ICD10 Code Diagnosis Note [id number] SRI GALLARDO PA-C [facility] [address] [place] [address] 01/29/2017 18:20:23 01/30/2017 08:26:30 Cellulitis of lower limb 304454295 L03.389 [id number] CARLOS CHAPMAN PA-C [facility] [address] [place] [address] 08/28/2017 14:17:34 08/28/2017 16:02:47 Cheilosis 44284178 K13.0 [id number] HONG ORLANDO PA-C [facility] [address] [place] [address] 10/14/2017 10:42:41 10/15/2017 08:25:26 Abscess of breast 62010340 N61.1 Likely Due to piercing. I was not able to express any exudate for wound culture and no fluctuance to I&D. Pt. to apply warm compresses 4-5x daily. Keep the area clean and dry. Ibuprofen for pain. RTC for a recheck, sooner with any worsening symptoms, particular ly fever. Pt. to not replace her piercing until the area is fully healed and she finishes all abx. [id number] [place] [address] 11/27/2017 15:43:38 11/27/2017 16:02:11 Tuberculosis screening 653904208 Z11.1 [id number] [place] [address] 01/22/2018 16:56:25 01/22/2018 18:08:50 Tuberculosis screening 359444383 Z11.1 [id number] LEXI GAMEZ PA-C [facility] [address] [place] [address] 01/25/2018 17:13:25 01/26/2018 10:19:56 [id number] SRI GALLARDO PA-C [facility] [address] [place] [address] 01/29/2018 16:12:21 01/31/2018 09:12:21 Left lower quadrant pain 972826977 R10.32 [id number] SRI GALLARDO PA-C [facility] [address] [place] [address] 04/08/2018 13:19:36 04/08/2018 14:52:33 Viral gastroenteritis 085569775 A08.4 [id number] YAMINI RICHARDSON PA-C [facility] [address] [place] [address] 05/16/2018 16:26:26 05/17/2018 08:40:02 Acute pharyngitis 583011135 J02.9 [id number] SRI GALLARDO PA-C [facility] [address] [place] [address] 06/10/2018 10:21:27 06/10/2018 11:16:00 Low back strain 437017830 S39.012A [id number] LUIS NEWMAN , BOX OFFICE CLERK [facility] [address] [place] [address] 06/20/2018 12:54:38 06/20/2018 14:02:25 Multiple skin tags 736465896 L91.8 Gynecologi c examination 65293842 Z01.419 Will contact patient with results Further diagnosis and treatment pending results Screening for malignant neoplasm of cervix 915951768 Z12.4 Venereal d isease screening 924132512 Z11.3 Irregular periods 056322 07 N92.6 Active or passive immunization 425335543 Z23 [id number] LEXI GAMEZ PA-C [facility] [address] [place] [address] 08/23/2018 15:18:10 08/23/2018 16:11:05 Exposure to sexually transmissible disorder 937016513 Z20.2 Abdominal pain 98788182 R10.9 [id number] RENETTA CHO PA-C [facility] [address] [place] [address] 03/02/2019 14:16:08 03/03/2019 08:17:39 Vaginal discharge 568652214 N89.8 [id number] SUE MORE MD [address] [address] 11/17/2019 14:11:56 11/17/2019 16:07:51 Cough 25402793 R05 Acute pharyngitis 814847 003 J02.9 Fever 331156089 R50.9 Acute uppe r respiratory infection 80534581 J06.9 [id number] SUE MORE [facility] [address] [place] [address] 03/11/2020 08:07:11 03/11/2020 12:29:34 Fever 376319806 R50.[id number] [place] [address] 03/11/2020 13:52:46 03/11/2020 14:37:01 Gynecologic examination 04726698 Z01.419 No PAP today. Discussed new guidelines that does not indicated repeat PAP or colposcopy for previous PAP with positive HPV. Patient to follow up in one year or sooner as needed Generalize d tenderness of breast 964888951 N64.4 Thought to be related to caffeine consumptio ns. Offered to order mammogram. Patient declines. States that she has checked and would not be covered by her insurance. Discussed possible consult for breast reduction surgery. Patient to research further. Advised patient to continue with SBEs and reduce caffeine. Follow up for worsening symptoms. Vaginitis 56919757 N76.0 One swab obtained and to lab Further diagnosis and treatment pending results Irregular periods 340651 07 N92.6 Not interested in COCs Recently stopped taking Sprintec [id number] SUE MORE MD [facility] [address] [address] 03/26/2020 08:01:03 03/26/2020 11:17:45 Backache 666022356 M54.9 Macromastia 472195963 N6 [id number] [place] [address] 05/25/2020 13:25:54 05/25/2020 15:49:54 Screening for malignant neoplasm of cervix 128741533 Z12.4 PAP obtained due history of positive HPV and friable cervix Venereal d isease screening 389124011 Z11.3 Vaginitis 59934650 N76.0 One swab obtained and to lab Further diagnosis and treatment pending results Amenorrhea 17933724 N91. 2 patient reports history of PCOS Normal ultrasound 2018 Patient reports that she has been taking metformin and spironolac tone. Will evaluate amenorrhea with labs and ultrasound Will discuss patient restarting Spintec pending results [id number] SUE MORE MD [facility] [address] [address] 06/15/2020 10:10:49 06/15/2020 11:02:59 Low back pain 917862167 M54.5 [id number] MAXI BOWMAN [facility] [address] [place] [address] 12/02/2020 10:02:35 12/02/2020 11:22:59 Vaginitis 49488876 N76.0 One swab obtained and to lab Further diagnosis and treatment pending results Venereal d isease screening 315688430 Z11.3 Patient declines blood work at this time see above note [id number] MAXI BOWMAN [address] [place] [address] 05/16/2021 15:25:20 05/16/2021 15:57:50 Abnormal vaginal odor 91443572 N89.8 One swab obtained and to labsee above note Vaginal discharge 991832 006 N89.8 Minimal amount of discharge observed on exam.One swab obtained and to labFurther diagnosis and treatment pending results Venereal d isease screening 481050667 Z11.3 Patient requesting STI testing from swab onlyPatien t declines blood work at this timeFurthe r diagnosis and treatment pending resultsWil l contact patient with results Elevated blood-pressure reading without diagnosis of hypertension 210062248 R03.0 Discussed with patient that blood pressure elevated today at 140/96.Dis cussed risk of taking CULLEN with elevated blood pressure and risk of stroke.Dur ing discussion with patient she reports intermitte nt chest pain and SOA for several days with exertion.D enies any cardiac historyPat ient denies nausea, vomiting or HAAdvised patient to immediatel y follow up at ER for evaluation patient agreed to go to ER for evaluation Contracept ion care management 653565055 Z30.9 Advised patient to stop CULLEN today due to elevated blood pressureAd vised patient to use back up condoms for next monthPatie nt due to start menses this weekWill send in RX for POP for patient to start this Sunday see above note [id number] TREMAINE VILLAGRAN PA-C [facility] [address] [place] [address] 04/17/2022 13:49:26 04/18/2022 04:22:08 Lumbar radiculopathy [id number] M54.16 [id number] LI MAYO MD SURGERY SCHEDULE [address] [place] [address] 05/09/2022 09:22:07 05/16/2022 15:24:31 [id number] LI MAYO MD NEUROSURG [facility] [address] [place] [address] 06/05/2022 09:18:05 06/06/2022 04:29:08 Postoperative care [id number] Z48.89 Patient is doing very well. 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 We will hold her off work during this time. She can return to clinic in 6 weeks to see one of our physicians assistants to release her back to work. If she is having any other issues I be happy to address them prior to that date. [id number] MARIO POLANCO, MAXI NEUROSURG [facility] [address] [place] [address] 07/28/2022 11:22:51 07/29/2022 04:23:12 Postoperative care [id number] Z48.89 Health Concerns Section Related Observation LastModified by Organization Detai ls LastModified Time None Recorded Concern Status LastModified by Organization Details LastModified Time None Recorded Advance Directives Directive None Recorded Payers Insurance Date Sequence Insurance Name Policy Number Policy Ford Covered Member ID Ford Member ID Guarantor Name 04/26/2022 1 UNSPECIFIED REMIT PAYOR Ramiro William 03/11/2020 1 [place] [id number] Flavia Thomas [id number] Ramiro Thomas 04/03/2022 2 [place] [id number] Ramiro Thomas [id number] Ramiro Thomas 07/27/2022 1 [place] [id number] Mady Thomas [id number] Ramiro Thomas 11/17/2019 1 [place] [id number] Mario Thomas [id number] Ramiro Thomas 03/10/2020 1 [place] [id number] Mario Thomas [id number] Ramiro Thomas Notes Date Note Type Note Provider Name and Address Organization Details Recorded Time 05/16/2021 text/html 21 year old female presents today with report of possible BVpatient states that she has been having vaginal discharge and odor for several weeksDescribed discharge as thick whiteDenies any vaginal itching, burning or irritationDenies nausea, vomiting bowel or bladder changes LMP: 04/18/21 current contraception: CULLEN LUIS NEWMAN, BOX OFFICE CLERK [address] [place], [address], [facility] 05/16/2021 16:00:25 04/17/2022 text/html ROS as noted in the HPI Patient is a 22-year-old female with no neurosurgical history presents today with low back pain and left LE pain X 2 years. Pain is located at the left hip and radiates laterally through the thigh calf and into the pinky toe. Patient has participated in PT in the past year with no improvement of pain. Patient has tried steroids, muscle relaxers and ibuprofen without significant improvement. Pain worsens with prolonged standing and sitting. Patient feels that she has exhausted conservative therapy and would like to discuss surgical interventions. Patient denies loss of bowel or bladder control and saddle anesthesia. Patient has new MRI disc with her today TREMAINE VILLAGRAN PA-C [address] [place], [address], [facility] 04/17/2022 15:03:43 06/05/2022 text/html ROS as noted in the HPI Patient is a very pleasant 22-year-old woman here today for postoperative follow-up after L4-5 hemilaminotomy with foraminotomy and discectomy on 27 April. She is done very well. She is had complete resolution of her lower extremity pain. She states when she stands for prolonged period she does experience the pain radiating down the lateral aspect of her leg to her knee. She states it abates when she moves. She is not quite ready to return to work. Imaging: No new imaging to review LI MAYO MD [address] [place], [address], [facility] 06/05/2022 13:06:09 07/28/2022 text/html ROS as noted in the HPI Ms. Thomas returns to the office 3 months postop from her left L4-[address] Mayo on April 27, 2022. Her last office visit was June 05, 2022 when she was referred to physical therapy. She reports a week or 2 ago she started to have increased low back pain and then a few days ago she started having difficulty with sleeping, walking, or even sitting due to a sharp pain and tight area in her low back that was even sensitive to touch. She also feels that she is starting to lean which she had not done since surgery. She appreciates a bump on her incision that hurts to touch she has not appreciated any drainage. She has occasionally had some left lateral thigh pain from her knee up to her hip but this has only happened today. She did do physical therapy but she has been released by them and has been doing work conditioning at work. She reports that she would like to return to work on Sunday but she is concerned if that would be okay given the symptoms that she is having now. She does feel that work conditioning has her doing different activities then what she would actually do at work and she reports that she does feel comfortable returning to work but did want to make sure all of this was normal postoperatively. She denies any bowel or bladder control changes. MARIO POLANCO APRN [address] [place], [address], [facility] 07/28/2022 12:26:51 OBGyn Episode No OBEpisode recorded.
--- OUTSIDE RECORDS SUMMARY | 2024-09-13 10:50 | XMS_ITS | Clinical Summary ---
Author Organization [facility] Address [address] [place] [address] Phone Care Team Providers Care Manager Mechanical Name Role Phone Rufina Rivero APRN [ ] Conditions or Problems Problem Name Problem Code Onset Date Status Entry Date Provider Comment Standard Description Annotate Leukemoid reaction 66234378 (SNOMED CT) Active Lamar Marie Leukemoid reaction Abscess/Cell ulitis of Right breast N61.1 (ICD-10-CM) Active Tsering Box Abscess of the breast and nipple Medications Medication Instructions Start Date Stop Date Generic Name NDC Provider MINOCYCLINE HCL 100 MG TABS Take 1 by mouth twice a day 11/01 MINOCYCLINE HCL 21704193404 Joseph Villalba CUBICIN RF SOLUTION RECONSTITUTED Cubicin 500mg IV q24hrs INPAT 10/23 DAPTOMYCIN SOLR 42753651629 Joseph K MINOCYCLINE HCL 100 MG TABS Take 1 by mouth twice a day 11/01 MINOCYCLINE HCL [id number] Octavio Thomas MD CUBICIN RF SOLUTION RECONSTITUTED Cubicin 500mg IV q24hrs INPAT 11/01 DAPTOMYCIN SOLR 37984605194 Jonelle Parr METFORMIN HCL 500 MG TABS Take one (1) tablet by mouth twice a day with meals METFORMIN HCL 13654270730 Lamar Marie SPIRONOLACTONE 25 MG TABS Take one (1) tablet by mouth twice a day SPIRONOLACTONE [id number] Lamar Marie TYLENOL 8 HOUR 650 MG CR-TABS As needed ACETAMINOPHEN 16879799757 Lamar Marie COLACE 100 MG CAPS As needed DOCUSATE SODIUM 20993039734 Lamar Marie Medications Administered No information available. Allergies, Adverse Reactions, Alerts No information available. Results Date Name Value Unit Range Flag Description Lab Report: CBC WITH AUTO DI FFERENTIAL IMMATUREGRAN 0.06 10*3/MM3 0.00-0.03 H Immature granulocytes [#/volume] in Blood BASO# 0.04 10*3/mm3 0.00-0.20 Basophils [#/vol ume] in Blood EOS ABSLT 0.28 10*3/uL 0.00-0.30 Eosinophi ls [#/volume] in Blood MONOSCT AUTO 1.08 10*3/uL 0.00-1.00 H Monocy yasmany [#/volume] in Blood by Automated count LYMPHCT AUTO 4.04 10*3/mm3 0.60-4.80 Lymph ocytes [#/volume] in Blood by Automated count ABS NEUTROPH 6.02 10*3/uL 1.50-8.30 Neutro phils [#/volume] in Blood IMM GRANU % 0.5 % 0.0-0.6 Immature granulocytes/100 leukocytes in Blood [id number] 0.3 % 0.0-1.0 GE use only - for [employer] import when terms are not otherwise specified % EOS AUTO 2.4 % 0.0-3.0 Eosinophil s/100 leukocytes in Blood by Automated count MONOCYTE BF 9.4 % 0.0-12.0 monocyte s as percent of body fluid leukocytes LYMPHOCY BF 35.3 % 24.0-44.0 lymphoc ytes as percent of body fluid leukocytes PMN % 52.6 % 41.0-71.0 Neutrophils /100 leukocytes in Blood by Automated count PLATELETS 469 10*3/mm3 150-450 H Platelets [#/volume] in Blood by Automated count RDW_ 12.2 11.3-14.5 RDW, no uni ts MCHC 33.0 G/DL 32.0-36.0 MCHC [Mass/ volume] by Automated count MCH 28.5 pg 27.0-31.0 MCH [Entiti c mass] by Automated count MCV 86.5 fL 80.0-99.0 MCV [Entiti c volume] by Automated count HCT 40.3 % 34.5-44.0 Hematocrit [Volume Fraction] of Blood by Automated count HGB 13.3 g/dL 11.5-15.5 Hemoglobin [Mass/volume] in Blood RBC 4.66 10*6/mm3 3.89-5.14 Erythrocyt es [#/volume] in Blood by Automated count WBC 11.46 10*3/mm3 4.50-13.5 0 Leukocytes [#/volume] in Blood by Automated count Lab Report: SEDIMENTATION RA TE ESR 5 mm/h 0-20 Erythrocyte sedimentation rate by Westergren method Lab Report: C-REACTIVE PROTE IN CRP 0.04 mg/dL 0.00-1.00 C reactive protein [Mass/volume] in Serum or Plasma Lab Report: CK CPK 43 U/L 26-174 Creatine fredy se [Enzymatic activity/volume] in Serum or Plasma Lab Report: COMPREHENSIVE ME TABOLIC PANEL ANIONGAP 5.0 mmol/L 3.0-11.0 anion gap, serum BUN/CREAT 18.0 7.0-25.0 Urea nitrogen/Creatinine [Mass Ratio] in Serum or Plasma GFRC 126 mL/min/1. 73m2 >60 Glomerular Filtration Rate Calculation BILI TOTAL 0.2 mg/dL 0.3-1.2 L Bilirubin. total [Mass/volume] in Serum or Plasma ALK PHOS 75 U/L 25-100 Alkaline nilo sphatase [Enzymatic activity/volume] in Blood SGOT (AST) 15 U/L 0-33 Aspartate aminotransferase [Enzymatic activity/volume] in Serum or Plasma SGPT (ALT) 15 U/L 7-40 Alanine aminotransferase [Enzymatic activity/volume] in Serum or Plasma ALBUMIN 4.62 g/dL 3.20-4.80 Albumin [Mass/volume] in Serum or Plasma PROTEIN, TOT 6.6 g/dL 5.7-8.2 Protein [Mass/volume] in Serum or Plasma CALCIUM 9.4 mg/dL 8.7-10.4 Calcium [Moles/volume] in Serum or Plasma CO2 26.0 mmol/L 20.0-31.0 Carbon diox mikhail, total [Moles/volume] in Venous blood CHLORIDE 110 mmol/L 99-109 H Chloride [Moles/volume] in Serum or Plasma POTASSIUM 4.9 mmol/L 3.5-5.5 Potassium [Moles/volume] in Serum or Plasma SODIUM 141 mmol/L 132-146 Sodium [Moles/volume] in Serum or Plasma CREATININE 0.61 mg/dL 0.60-1.30 Creatini ne [Mass/volume] in Serum or Plasma BUN 11 mg/dL 9-23 Urea nitrogen [Mass/volume] in Serum or Plasma GLUCOSE SER 84 mg/dL 70-100 Glucose [Mass/volume] in Serum or Plasma External Other: Patient sabine glover update - [facility] ... PATPORTALPIN Linked This karsten l be used to establish a PIN number for patients to register in the Patient Portal. External Other: Patient sabine glover update - Email [facility], [facility] ... PAT E-MAIL dilia [email or web address] patient's e-mail address Office Visit: Room 2 MEDS REVIEW Done Documenta tion of current medications (procedure) CIGARET SMKG yes Tobacco smoking status SMOK STATUS Former smoker Tobacco smoking status Plan of Care Type Date Detail Pending order CMP Pending order CBC with Differe ntial Pending order C- reactive prot ein Pending order CPK Pending order Sedimentation Ra te (ESR) Pending order Stat Weekly Labs Patient education Medications Patient education Daptomycin%20( Injection)%20(Injectable) Procedures Code Procedure Name Date Entry Date CPT-38170 CMP [id number],[id number] CBC with Differential 2017 CPT-41700 C- reactive protein [id number], [id number] CPK CPT-91558 Sedimentation Rate (ESR) 201 09/27/00 CPT- stat weekly Stat Weekly Labs Vital Signs Date Name Value Unit Description BMI (Body Mass Index) 28.40 kg/m2 Bod y Mass Index (Ratio) Body Temperature 98.7 [degF] temperat ure E&M BP Diastolic 72 mm[Hg] blood pressu re, diastolic BP Systolic 112 mm[Hg] blood pressur e, systolic Heart Rate 86 /min pulse rate Height 66 [in_us] height E&M Respiratory Rate 12 /min respirat ory rate E&M Weight Measured 176 [lb_av] weight E& M Weight Measured 176 [lb_av] weight E& M Immunizations No information available. Advance Directives No information available.
--- OUTSIDE RECORDS SUMMARY | 2024-09-13 10:50 | XMS_ITS | Referral Summary ---
Author Organization [employer] ([place], [place], [place], [place]) Address [address] [place] [address] Care Team Providers Care Technical Designer Name Role Phone Unavailable Primary Care Provider Unavailabl e Allergies No known active allergies Medications metFORMIN (GLUCOPHAGE) 500 MG tablet Take 500 mg by mouth 2 (two) times daily with breakfast and dinner. Active spironolactone (ALDACTONE) 25 MG tablet Take 25 mg by mouth daily. Active Active Problems No known active problems Social History Tobacco Use Types Packs/Day Years Used Date Smoking Tobacco: Former Smokeless Tobacco: Never Comments:Stopped smoking 4 y ears ago,history of vaping but not currently Alcohol Use Standard Drinks/Week Comments Yes 0 (1 standard drink = 0.6 oz pur e alcohol) socially Food Insecurity Answer Date Recorded Food run out past 12 months Not on file 02/19 Food did not last past 12 months Not on file 03/09/2023 Employment Answer Date Recorded Help finding and keeping a job Not on file 0 03/09/2023 Family and Community Support Answer Yonathan e Recorded Help with Day to Day Activities Not on file 03/09/2023 Feeling Lonely or Isolated Not on file 03/09 Educational Attainment Answer Date Cj rded Speak language other than [place] Citizen at home Not on file 03/09/2023 Want help with school or training Not on file 03/09/2023 Substance Use Answer Date Recorded Used prescription meds for non-medical reasons N ot on file 03/09/2023 Used illegal drugs past 12 months Not on file 03/09/2023 Comments Unknown Sex and Gender Information Value Date Recorded Sex Assigned at Not on file Legal Sex Female 5:53 PM CDT Gender Identity Not on file Sexual Orientation Not on file Last Filed Vital Signs Vital Sign Reading Time Taken Comments Blood Pressure 119/65 04/27/2022 5:22 PM EST Pulse 91 04/27/2022 5:22 PM EST Temperature 36.9 C (98.5 F) 04/27/2022 4:52 PM EST Respiratory Rate 16 04/27/2022 5:22 PM EST Oxygen Saturation 95% 04/27/2022 5:22 PM EST Inhaled Oxygen Concentration - - Weight 91.2 kg (201 lb) 04/27/2022 9:06 AM EST Height 170.2 cm (5' 7 ) 04/27/2022 9:06 AM EST Body Mass Index 31.48 04/27/2022 9:06 AM EST Plan of Treatment Not on file Insurance BLUE CROSS/BLUE SHIELD Advance Directives For more information, please contact: [phone] Documents on File Type Date Recorded Patient Training And Development Officer Expl anation Advance Directives and Pat ambrocio Will 04/27/2022 8:29 AM
--- OUTSIDE RECORDS SUMMARY | 2024-09-13 10:50 | XMS_ITS | Clinical Summary ---
Author Organization [employer] ([place], [place], [place], [place]) Address [address] [place] [address] Care Team Providers Care Lacquer Sizer Name Role Phone Unavailable Primary Care Provider [...] Date Cj rded Speak language other than [place] at home Not on file 03/09/2023 Want [...] 04/27/2022 9:06 AM EST Plan of Treatment Health Maintenance Due Date Last Done Comments Depression Screening (12+) 2010 HIV Screening 2013 Hepatitis C Screening 01/29/2016 DTAP/TDAP/TD VACCINES (1 - Tdap) 2017 Lipid Panel 2018 Pap Smear 2019 Tobacco Cessation Counseling and Screening (12+) 04/28/2023 04/27/2022 COVID-19 VACCINE (1 - 2023-2 5 season) 2023 Influenza Vaccine (#1) 2024 01/20/2020 Pneumococcal Vaccine: 0-49 Years Aged Out No longer eligible based on patient's age to complete this topic Insurance BLUE CROSS/BLUE SHIELD Advance Directives For more information, please contact: [phone] Documents on File Type Date Recorded Patient Creosoting Engineer Expl anation Advance Directives and Pat ambrocio Will 04/27/2022 8:29 AM
--- OUTSIDE RECORDS SUMMARY | 2024-09-13 10:50 | XMS_ITS | Patient Health Record ---
Author Organization [facility] Address [address] [place] [address] Care Team Providers Care Accounting Analyst Name Role Phone Meghana Mcbride Unavailable [phone] TeraDanay clayton Unavailable [phone] Allergies No Known Allergies Reason For Referral No Information Medications Medication [...] History Drug/Alcohol: den ies/denies Tobacco Use: denies Problems Problem Type SNOMED Code ICD Code Onset Dates Problem Status W/U Status Risk Notes Problem Polycystic ovary syndrome (disorder) (873691070) PCOS (polycystic ovarian syndrome) (E28.2) Active confirmed Problem Vaginal odor (870114974) Vaginal odor (N94.9) Active confirmed Problem Irregular menstrual cycle (81220922) Irregular menstrual cycle (N92.6) Active confirmed Plan Of Treatment No Information Insurance Providers Payer Name Payer Address Payer Phone Subscriber Number Group Number Insured Name Patient Relationship to Insured Coverage Start Date Coverage End Date [place] [employer] [address] [place] [address] [phone] [id number] Ramiro Collins Self - patient is the insured 2 [place] [employer] [address] [place] [address] [id number] Ramiro [place] Self - patient is the insured 2 Medical (General) History Medical History History ICD Code PCOS BV HSIL Surgical History Surgery Date(Month/Year) back surgery Hospitalization History Reason Date(Month/Year)
--- OUTSIDE RECORDS SUMMARY | 2024-09-13 10:50 | XMS_ITS | Data Portability ---
Author Organization [facility] Address [address] [place] [id number] Assessment Encounter Date Assessment Date Assessment LastModified by Organization Details LastModified Time 03/03/2023 03/03/2023 Patient was instructed we would call with test results Will treat today based off symptoms No sexual contact until all test are back and treatment is finished discussed safe sex practices Follow up with any worsening symptoms [email or web address] Not available 03/03/2023 15:46:03 Plan of Treatment Reminders Order Date Submit Date Provider Last Modified By Organization Details Last Modified Time Details Appointments None recorded. Lab infectious disease panel 2023 024 [employer], [address], [place], [address], 4 08:30:09 Referral None recorded. Procedures None recorded. Surgeries None recorded. Imaging None recorded. Medication Orders moxifloxac in 400 mg tablet [id number] [facility]/Pharmacy #[id number], [address] [facility], [place], [address], 4 14:42:19 Patient TargetsNo targets recorded. Patient InstructionsNo instructions recorded. Reason for Referral None Reported. Results Created Date Observation Date Name Description Value Unit Range Abnormal Flag Note LastModifiedBy Organization Detail LastModifiedTime Result Notes None recorded. Medical Equipment None Reported. Medications Name Sig Start Date Stop Date Status Note LastModified by Organization Details LastModified Time cyclobenzap rine 10 mg tablet TAKE 1 TABLET BY MOUTH THREE TIMES A DAY FOR 10 DAYS active Not Available Not Available No t Available metformin 500 mg tablet TAKE 1 TABLET BY MOUTH TWICE A DAY FOR 90 DAYS active Not Available Not Available No t Available norgestimat e 0.25 mg-ethinyl estradiol 0.035 mg tablet TAKE 1 TABLET BY MOUTH EVERY DAY active Not Available Not Available No t Available doxycycline hyclate 100 mg capsule TAKE 1 CAPSULE BY MOUTH TWICE A DAY FOR 10 DAYS 03/03 completed Not Available Not Available Not Available fluconazole 150 mg tablet TAKE 1 TABLET BY MOUTH ONCE. MAY REPEAT DOSE IN 72 HOURS IF NO IMPROVEME NT 03/03 completed Not Available Not Available Not Available clarithromy jacob 500 mg tablet TAKE 1 TABLET BY MOUTH EVERY 12 HOURS FOR 10 DAYS 03/03 completed Not Available Not Available Not Available fluconazole 200 mg tablet TAKE 1 TABLET BY MOUTH ON DAYS 1,4,AND 7 FOR 3 TOTAL DAYS 03/03 completed Not Available Not Available Not Available metronidazo le 0.75 % (37.5 mg/5 gram) vaginal gel APPLY 1 APPLICATO RFUL VAGINALLY AT BEDTIME FOR 5 DAYS active Not Available Not Available No t Available moxifloxaci n 400 mg tablet Take 1 tablet every day by oral route for 7 days. 2023 active Not Available Not Available Not Avai lable metronidazo le 500 mg tablet TAKE 1 TABLET BY MOUTH TWICE A DAY FOR 10 DAYS 03/03 completed Not Available Not Available Not Available doxycycline monohydrate 100 mg tablet TAKE 1 TABLET BY MOUTH TWICE A DAY 03/03 completed Not Available Not Available Not Available spironolact one 25 mg tablet TAKE 1 TABLET BY MOUTH EVERY DAY active Not Available Not Available No t Available hydrocodone 7.5 mg-acetamin ophen 325 mg tablet TAKE 1 TABLET BY MOUTH EVERY 6 HOURS NEEDED FOR PAIN 03/03 completed Not Available Not Available Not Available docusate sodium 100 mg capsule TAKE 1 CAPSULE BY MOUTH TWICE A DAY NEEDED active Not Available Not Available No t Available Senna Laxative 8.6 mg tablet TAKE 2 TABLETS ORAL ROUTE ONCE DAILY NEEDED FOR CONSTIPAT ION active Not Available Not Available No t Available magnesium citrate oral solution TAKE 1 BOTTLE ORAL ROUTE DIRECTED FOR 1 DAY active Not Available Not Available No t Available mupirocin 2 % topical ointment APPLY TWICE DAILY TO INNER NOSTRILS STARTING 5 DAYS BEFORE SURGERY active Not Available Not Available No t Available methylpredn isolone 4 mg tablets in a dose pack TAKE 6 TABLETS ON DAY 1 DIRECTED ON PACKAGE AND DECREASE BY 1 TAB EACH DAY FOR A TOTAL OF 6 DAYS 03/03 completed Not Available Not Available Not Available ondansetron 4 mg disintegrat ing tablet TAKE 1 TABLET BY MOUTH EVERY 6 HOURS NEEDED 03/03 completed Not Available Not Available Not Available oxycodone 5 mg tablet TAKE 1 TABLET BY MOUTH EVERY 4 TO 6 HOURS NEEDED FOR PAIN active Not Available Not Available No t Available azithromyci n 500 mg tablet TAKE 2 TABLETS BY MOUTH ONCE ONLY A SINGLE DOSE 03/03 completed Not Available Not Available Not Available 03/10 (21) 1 mg-20 mcg tablet TAKE 1 TABLET BY MOUTH EVERY DAY FOR 90 DAYS active Not Available Not Available No t Available Vitals None Recorded Social History None recorded. Functional Status None recorded. Mental Status None recorded. Family History Nothing Reported. Medical History No medical history recorded. Gynecological HistoryNo gynecological history recorded. Obstetrics History GPAL:G 0 P 0 0 0 0 Immunizations Vaccine Type Date Status Note Provider Nam e and Address Organization Details Recorded Time HPV9 06/20/2018 completed Alida Jennings [facility], [place] - [facility] 03/03/2023 15:45:16 Past Encounters Encounter ID Performer Location Encounter Start Date Encounter Closed Date Diagnosis/Indication Diagnosis SNOMED-CT Code Diagnosis ICD10 Code Diagnosis Note [id number] Danay Gallagher APRN [address] [address] 03/03/2023 15:31:53 03/03/2023 15:57:24 At increased risk of sexually transmitted infection 291256827 Z20.2 Health Concerns Section Related Observation LastModified by Organization Detai ls LastModified Time None Recorded Concern Status LastModified by Organization Details LastModified Time None Recorded Advance Directives Directive None Recorded Payers Insurance Date Sequence Insurance Name Policy Number Policy Ford Covered Member ID Ford Member ID Guarantor Name 03/03/2023 1 [place] [id number] Ramiro Thomas [id number] Ramiro Thomas Notes Date Note Type Note Provider Name and Address Organization Details Recorded Time 03/03/2023 text/html Sexually Transmi tted InfectionReported by PatientHPIFor associated symptoms, patient reportsvaginal dischargebut reportsno abdominal pain,no anal lesions,no back pain,no chills,no constipation,no diarrhea,no dribbling,no dysuria,no urinary retention,no fever,no frequency,no groin pain,no hematuria,no hematospermia,no nausea,no nocturia,no malodor,no painful intercourse,no genital lesions,no perineal lesions,no pruritus,no straining stream,no stress incontinence,no urethral discharge,no urgency,no urge incontinence,no vomiting,no weight loss,no malaise,no myalgia,no headache,no lymphadenopathy,no pustules,no papules,no vesicles,no indurated lesion,no thrush,no hepatomegaly,no cervical discharge,no vaginal discharge,no rectal discharge,no rectal bleeding,no proctitis, andno erythema(vaginal discharge with smell). For location, patient reportsvagina. For quality, patient reportsburning. For severity, patient reportsmoderate. For duration, patient reports5 months. For timing, patient reportsgradual. For context, patient reportshigh risk sexual behavior(exposure to std). For aggravating factors, patient reportsnone. For alleviating factors, patient reportsnone. 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
--- OUTSIDE RECORDS SUMMARY | 2024-09-13 10:50 | XMS_ITS | Clinical Summary ---
Author Organization [facility] Address [address] [place] [address] Care Team Providers Care Bpm Developer Name Role Phone Provider, No Known Primary Care Provider Unavail able Allergies No known active allergies Medications metFORMIN (GLUCOPHAGE) 500 MG tablet Take 500 mg by mouth. 04/20/2021 Active norethindrone-et hinyl estradiol-iron (ESTROSTEP FE) 1-20/1-30/1-35 MG-MCG tablet Take by mouth. Active spironolactone (ALDACTONE) 25 MG tablet Take 25 mg by mouth. Active Active Problems Problem Noted Date Diagnosed Date Abscess of right breast 10/19/2017 Polycystic ovarian disease 10/19/2017 Breast infection 10/19/2017 Overview (10/19/2017): Right sided cellulitis w/ phlegmon versus small abscess Palpitations 12/05/2016 Overview (01/16/2017): Zio monitor, 12/05/16 (wear time 5 days). Sinus rhythm/sinus tachycardia. Rare PACs. A triggers associated with sinus rhythm and sinus tachycardia 107 bpm. Possible PACs difficult to tell due to ectopy. Family History Medical History Relation Name Comments No Known Problems Brother 1 No Known Problems Brother 2 No Known Problems Brother 3 Hypertension Father Heart attack Maternal Grandfather Diabetes Maternal Grandmother Hypertension Maternal Grandmother Kidney failure Maternal Grandmother Hypertension Mother No Known Problems Paternal Grandfather Stroke Paternal Grandmother No Known Problems Sister 1 No Known Problems Sister 2 No Known Problems Sister 3 Relation Name Status Comments Brother 1 Alive Brother 2 Alive Brother 3 Alive Father Alive Maternal Grandfather Maternal Grandmother Mother Alive Paternal Grandfather Paternal Grandmother Alive Sister 1 Alive Sister 2 Alive Sister 3 Alive Social History Tobacco Use Types Packs/Day Years Used Date Smoking Tobacco: Former Cigarettes 0 07/20/2016 - 07/20/2017 Smokeless Tobacco: Never Alcohol Use Standard Drinks/Week Comments No 0 (1 standard drink = 0.6 oz pur e alcohol) Abuse Screen Answer Date Recorded Unsafe at Home or Work/School Not on file Feels Threatened by Someone? Not on file 12/2022 Does Anyone Keep You from Co ntacting Others or Doint Things Outside the Home? Not on file 11/29/2022 Physical Sign of Abuse Present Not on file 1 Housing Stability Answer Date Recorded Current Living Arrangements Not on file 11/19 Potentially Unsafe Housing Conditions Not on [place] e 11/29/2022 Family and Community Support Answer Yonathan e Recorded Help with Day-to-Day Activities Not on file 11/29/2022 Lonely or Isolated Not on file 11/29/2022 Employment Answer Date Recorded Do you want help finding or keeping work or a adam b? Not on file 11/29/2022 Disabilities Answer Date Recorded Concentrating, Remembering, or Making Decisions Difficulty Not on file 11/29/2022 Doing Errands Independently Difficulty Not on fi le 11/29/2022 Education Answer Date Recorded Help with school or training? Not on file Preferred Language Not on file 11/29/2022 Comments No Sex and Gender Information Value Date Recorded Sex Assigned at Not on file Legal Sex Female 5:49 PM EDT Gender Identity Not on file Sexual Orientation Not on file Last Filed Vital Signs Vital Sign Reading Time Taken Comments Blood Pressure 137/89 09/18/2021 11:09 AM EDT Pulse 107 09/18/2021 11:09 AM EDT Temperature 37.4 C (99.3 F) 09/18/2021 11:09 AM EDT Respiratory Rate 18 09/18/2021 11:09 AM EDT Oxygen Saturation 100% 09/18/2021 11:09 AM EDT Inhaled Oxygen Concentration - - Weight 90.7 kg (200 lb) 09/18/2021 11:09 AM EDT Height 170.2 cm (5' 7 ) 09/18/2021 11:09 AM EDT Body Mass Index 31.32 09/18/2021 11:09 AM EDT Plan of Treatment Health Maintenance Due Date Last Done Comments Annual Gynecologic Pelvic an d Breast Exam 1998 ANNUAL PHYSICAL 08/24/2016 TDAP/TD VACCINES (1 - Tdap) 2017 HPV VACCINES (2 - 3-dose series) 07/18/2018 06/21/19 19 COVID-19 Vaccine ( - 2023-2 5 season) 2023 INFLUENZA VACCINE 11/19/2024 01/20/2020 HEPATITIS C SCREENING Completed 01/08/2017 CHLAMYDIA SCREENING Discontinued 02/14/2019 Pneumococcal Vaccine 0-49 Aged Out No longer eligible based on patient's age to complete this topic Procedures Procedure Name Priority Date/Time Associated Diagnosis Comments CHLAMYDIA TRACHOMATIS, NEISSERIA GONORRHOEAE, TRICHOMONAS VAGINALIS, PCR STAT 02/14/2019 4:45 PM EST HEPATITIS C ANTIBODY Routine 01/08/2017 3:53 PM EST Venereal disease contact from Last 3 Months or Most Recently Relevant to Health Maintenance Results * Chlamydia trachomatis, Neisseria gonorrhoeae, Trichomonas vaginalis, PCR - Swab, Vagina (02/14/20194:45 PM EST) Pathologist [facility] Chlamydia trachomatis, MATTHEW Negative Negative 02/18/2019 6:08 AM EST [facility] Gonococcus by MATTHEW Negative Negative 02/18/2019 6:08 AM EST [facility] Trichomonas vaginosis Negative Negative 02/18/2019 6:08 AM EST [facility] Swab Specimen from vagina / Unknown Collection / Unknown 02/14/2019 4:45 PM EST 02/15/2019 7:35 AM EST Narrative [facility] - 02/18/2019 6:08 AM EST Performed at: [address] [place] [id number] Cardio Clinician: Maria Guadalupe Chowdhury MD, Phone: [phone] Hilda Buchanan PERCUSSION TUNER MICROBIOLOGY - GENERAL O RDERABLES Final Result [facility] [address] [place] [address], * Hepatitis C Antibody (01/08/2017 3:53 PM EST) Hepatitis C Ab Non-Reacti ve Non-Reacti ve 01/08/2017 5:35 PM EST [facility] Blood Venipuncture / Unknown 01/08/2017 3:53 PM EST 01/08/2017 3:53 PM EST Leah Davis DO LAB BLOOD ORDERABLES Final Resu lt [facility]
[address] [place] [address], from Last 3 Months or Most Recently Relevant to Health Maintenance [address] 1979 [address] Advance Directives * CPR (Attempt to Resuscitate) (Latest Code Status on File) Date Activated Date Inactivated Comments 10/19/2017 3:09 AM 10/19/2017 10:13 PM Question Answer Comments Code Status (Patient has no pulse and is not breathing): CPR (Attempt to Resuscitate) Medical Interventions (Patie nt has pulse or is breathing): Full Level Of Support Discussed With: Patient Care Teams Bpm Developer Relationship Specialty Start Date End Date Provider, [place] [address] PCP - General 08/24/16
--- OUTSIDE RECORDS SUMMARY | 2024-09-13 10:50 | XMS_ITS | Clinical Summary ---
Author Organization [facility] Address [address] [place], [place] [id number] Phone [email or web address] Care Team Providers Care Financial Counselor Name Role Phone Provider, No Primary Care Provider Unavailabl e Allergies No known active allergies Medications metFORMIN (GLUCOPHAGE) 500 MG tablet Take 500 mg by mouth 2 (two) times a day. 04/20/2021 Active norethindrone-e thinyl estradiol-iron (ESTROSTEP FE) 1-20/1-30/1-35 MG-MCG tablet Take by mouth once daily as needed. Active spironolactone (ALDACTONE) 25 MG tablet Take 25 mg by mouth once daily as needed. Active methylPREDNISol one (MEDROL DOSPAK) 4 MG tablet TAKE 6 TABLETS ON DAY 1 DIRECTED ON PACKAGE AND DECREASE BY 1 TAB EACH DAY FOR A TOTAL OF 6 DAYS 07/28/2022 Active Active Problems Problem Noted Date Diagnosed Date SOB (shortness of breath) 05/20/2021 Social History Tobacco Use Types Packs/Day Years Used Date Smoking Tobacco: Former Cigarettes E-Cigarettes Smokeless Tobacco: Never Tobacco Cessation:Counseling Given: Not Answered Intimate Partner Violence Answer Date R ecorded Insults You Not on file 06/05/2020 Threatens You Not on file 06/05/2020 Screams at You Not on file 06/05/2020 Physically Hurt Not on file 06/05/2020 Intimate Partner Violence Score Not on file 06/05/2020 Depression Answer Date Recorded PHQ Total Score Not on file 07/19/2023 Stress Answer Date Recorded Stress in your Life Not on file 12/26/2023 Dealing with Stress 3 12/26/2023 Comments Unknown Sex and Gender Information Value Date Recorded Sex Assigned at Not on file Legal Sex Female 10:27 AM PAD HAND Gender Identity Not on file Sexual Orientation Not on file Last Filed Vital Signs Vital Sign Reading Time Taken Comments Blood Pressure 145/90 11/02/2023 2:54 PM EDT Pulse 88 11/02/2023 2:54 PM EDT Temperature 36.4 C (97.6 F) 11/02/2023 2:54 PM EDT Respiratory Rate 16 11/02/2023 2:54 PM EDT Oxygen Saturation 98% 11/02/2023 2:54 PM EDT Inhaled Oxygen Concentration - - Weight 91.2 kg (201 lb) 08/19/2020 12:25 PM EDT Height 170.2 cm (5' 7 ) 08/19/2020 12:25 PM EDT Body Mass Index 31.48 08/19/2020 12:25 PM EDT Plan of Treatment Health Maintenance Due Date Last Done Comments Dental Cleaning/Exam 1998 HIV Screening 1998 Hepatitis C Screening 1998 Cervical Cancer Screening 2014 Hep B Infection Screening - Triple Screen 01/29/2016 Hepatitis B Immunization (1 of 3 - 19+ 3-dose series) 2017 Tetanus Diphtheria and Pertu ssis Immunization (1 - Tdap) 2017 HPV Immunization (2 - 3-dose series) 07/18/2018 06/20/2018 Annual Preventive Exam 08/19/2021 08/19/2020 Covid-19 Immunization (1 - 2 024-25 season) 2023 Influenza Immunization (#1) 2024 HIB Immunization Aged Out No longer e ligible based on patient's age to complete this topic Hepatitis A Immunization Aged Out No longer eligible based on patient's age to complete this topic Pneumococcal: Ped (0 to 5 Yr s) and At-Risk Member (6 to 64 Yrs) Aged Out No longer e ligible based on patient's age to complete this topic Polio Immunization Aged Out No longer eligible based on patient's age to complete this topic Varicella Immunization Aged Out No lo nger eligible based on patient's age to complete this topic [place] [place] [id number] OPT OUT NO COPAY NB Care Teams Financial Counselor Relationship Specialty Start Date End Date Provider, CHRISTIANO Todd [address] PCP - General Mail Sorting Supervisor 07/18/22
--- NOTE | 2024-09-13 10:53 | XR_ITS ---
PROCEDURE INFORMATION: Exam: XR Chest Exam date and time: 09/13/2024 11:25 AM Age: 24 years old Clinical indication: Dyspnea TECHNIQUE: Imaging protocol: Radiologic exam of the chest. Views: 1 view. COMPARISON: CR XR THORACIC SPINE 3V 03/14/2022 12:15 PM FINDINGS: Lungs: Unremarkable. No consolidation. Pleural spaces: Unremarkable. No pleural effusion. No pneumothorax. Heart/Mediastinum: Unremarkable. No cardiomegaly. Bones/joints: Unremarkable. IMPRESSION: No acute findings.
--- NOTE | 2024-09-13 10:54 | HMH.EDGENADL ---
Discharge Plan Disposition Patient Disposition: Home, Self-Care Prescriptions Prescriptions: New famotidine [Pepcid AC] 20 mg tablet 20 mg PO BID PRN (Reason: abdominal pain) 14 Days Qty: 28 0RF alum-mag hydroxide-simeth [Maalox Advanced] 200-200-20 mg/5 mL suspension 5 ml PO Q3H PRN (Reason: dyspepsia) Qty: 3000 0RF No Action norgestimate-ethinyl estradiol 1 EACH tablet 1 each PO DAILY spironolactone 25 MG tablet 25 mg PO DAILY metformin 500 MG tablet 500 mg PO BID diphenhydramine HCl 25 MG capsule 25 mg PO Q6HP PRN (Reason: Itching) Qty: 30 0RF methylprednisolone 4 MG tablets,dose pack 4 mg PO DIRECTED 6 Days Qty: 21 0RF loperamide 2 MG tablet 2 mg PO TIDP PRN (Reason: Diarrhea) Qty: 10 0RF ondansetron 4 MG tablet,disintegrating 4 mg PO TIDP PRN (Reason: Nausea And Vomiting) Qty: 10 0RF Referrals Follow up/Referrals: Beltran Hernandez II, MD [Staff Physician, Gastroenterology] - See instructions Hortensia Geller APRN [Primary Care Provider, Medical] - See instructions Activity Restrictions/Add. Instructions Additional Instructions/Restrictions: As discussed your emergency workup was unremarkable today however your symptoms are highly concerning for peptic ulcer/gastroesophageal reflux disease and I recommend you follow-up with Dr. Hernandez to discuss the possibility of an endoscopy and ongoing medical management for your symptoms. My cell modifications are needed as discussed return precautions include severe abdominal pain high fevers or other concerns. Clinical Impressions Clinical Impression: Epigastric abdominal pain, GERD (gastroesophageal reflux disease) Instructions Patient Instructions: DI for Acute Abdominal Pain Print Language Print Language: British Discharge ED Provider: Bette Cornell General Adult HPI General Chief complaint: Abdominal Pain Stated complaint: abd pain Time Seen by Provider: 09/13/24 10:40 Mode of Arrival: Ambulatory Source of Information: Patient Description of Symptoms (Recalled from ER Triage Doc. by RN): Patient presents to ED with c/o upper abdominal pain, states the pain started at 0400 after eating [employer] at 0330. Reports she forced herself to vomiting in the hopes she would feel better but states that did not help. Patient denies any additional complaints, states pain worsens when lying flat. History of Present Illness HPI narrative: Patient is a 24-year-old female present today with epigastric abdominal pain. 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 Denies any melena or hematochezia or hematemesis. No history of any gastric ulcers that she is aware of. No localized right sided abdominal pain. No chest pain or shortness of breath. No history of any arrhythmias. Related Data Home Medications ?Medication ?Instructions ?Recorded ?Confirmed metformin 500 mg tablet 500 mg PO BID [facility] 06/22/20 06/22/20 norgestimate 0.25 mg-ethinyl 1 each PO DAILY [facility] 06/22/20 06/22/20 estradiol 0.035 mg tablet spironolactone 25 mg tablet 25 mg PO DAILY [facility] 06/22/20 06/22/20 Previous Rx's ?Medication ?Instructions ?Recorded diphenhydramine HCl 25 mg capsule 25 mg PO Q6HP PRN Itching #30 caps 06/22/20 methylprednisolone 4 mg tablets in 4 mg PO DIRECTED 6 days ##21 06/22/20 a dose pack loperamide 2 mg tablet 2 mg PO TIDP PRN Diarrhea #10 tabs 04/26/21 ondansetron 4 mg disintegrating 4 mg PO TIDP PRN Nausea And 04/26/21 tablet Vomiting #10 tabs aluminum-mag hydroxide-simethicone 5 ml PO Q3H PRN dyspepsia #3,000 mL 09/13/24 200 mg-200 mg-20 mg/5 mL oral susp (Maalox Advanced) famotidine 20 mg tablet (Pepcid AC) 20 mg PO BID PRN abdominal pain 2 09/13/24 weeks #28 tabs Allergies Allergy/AdvReac Type Severity Reaction Status Date / Time No Known Allergies Allergy Verified 06/22/20 17:20 [facility] Disclaimer: The information contained in this section may have been updated after the patient was seen, as this information can be updated by other users. Social History Smoking Status: Never smoker alcohol intake: never current occupational status: other Travel in the last 8 weeks?: None Have you lived/traveled outside [place] in past 30 days?: No Contact w/someone who lives/traveled outside [place] past 30 days?: No Exposure to someone with infectious disease in past 14 days?: No Do you have a fever (greater than 100.4 F or 38 C)?: No Have you tested positive for COVID-19?: No Exposed to someone with COVID-19 in past 14 days?: No Do you have a sore throat?: No Do you have a cough?: No Do you have any weakness?: No Do you have any diarrhea?: No Are you experiencing any unusual bleeding?: No Do you have any muscle aches/pain?: No Do you have any abdominal pain?: No Are you experiencing loss of taste or smell?: No Other Medical History Have you received the Flu Vaccine for this season: No Have you received the Pneumonia Vaccine: No ROS Obtained: Yes All systems reviewed & no additional complaints except as documented Physical Exam General General appearance: anxious Respiratory Respiratory exam: Present normal lung sounds bilaterally Cardiovascular Cardiovascular exam: Present regular rate Abdominal Exam Abdominal exam: Present soft and tenderness (Mild epigastric tenderness but no significant tenderness or rebound or guarding no right upper quadrant tenderness or rigidity or rebound anywhere else in the); Absent distention Neurological Exam Neurological exam: Present alert and oriented X3 Medical Decision Making Medical Records Screening: Per USPSTF and CDC recommendations, given the prevalence of disease in our region, it is our hospital?s policy to screen for HIV and viral Hepatitis for all patients aged 18 and over and those with ongoing risk factors. Win Inquiry Pt receiving controlled substance: No Vital Signs: 09/13/24 10:39 09/13/24 11:04 09/13/24 11:30 Temperature 98.2 F Temperature Source Oral Pulse Rate 109 H 93 H Pulse Rate [Left] 164 H Respiratory Rate 19 20 18 Blood Pressure 139/86 123/75 Blood Pressure [Right Arm] 158/101 H Blood Pressure Mean 96 91 Blood Pressure Mean [Right Arm] 120 Blood Pressure Source [Right Arm] Automatic Cuff Blood Pressure Position [Right Arm] Sitting 02 Sat by Pulse Oximetry 100 99 100 Oxygen Delivery Method Room Air 09/13/24 12:00 Temperature Temperature Source Pulse Rate 106 H Pulse Rate [Left] Respiratory Rate 20 Blood Pressure 116/73 Blood Pressure [Right Arm] Blood Pressure Mean 87 Blood Pressure Mean [Right Arm] Blood Pressure Source [Right Arm] Blood Pressure Position [Right Arm] 02 Sat by Pulse Oximetry 100 Oxygen Delivery Method Lab Data Lab results reviewed: Yes I reviewed the patient's lab results. Lab Results 09/13/24 10:59: WBC 12.7 H, RBC 4.43, Hgb 13.3, Hct 38.2, MCV 86.2, MCH 30.0, MCHC 34.8, RDW 11.9, Plt Count 448 H, MPV 9.4, Neut % (Auto) 69.7, Lymph % (Auto) 23.7, [place] % (Auto) 5.1, Eos % (Auto) 0.9, Baso % (Auto) 0.3, Neut # (Auto) 8.8 H, Lymph # (Auto) 3.0, [place] # (Auto) 0.7, Eos # (Auto) 0.1, Baso # (Auto) 0.0, Sodium 137, Potassium 3.7, Chloride 105, Carbon Dioxide 25, Anion Gap 10.7, BUN 6 L, Creatinine 0.40 L, Estimated Creat Clear 234, Estimated GFR 193, Est GFR ( Amer) 233, Glucose 124 H, Calcium 9.4, Total Bilirubin 0.6, AST 20, ALT 15, Alkaline Phosphatase 67, Troponin I < 0.01, Total Protein 7.6, Albumin 4.7, Globulin 2.9, Albumin/Globulin Ratio 1.6, Lipase 139, Serum HCG, Qual Negative, HCV Ab CHRIS w/Rflx PCR Qn Negative, HIV Ag/Ab Combo Qual Negative 09/13/24 10:59 09/13/24 10:59 Orders (Tests/Meds): ED MEDICATIONS Generic Name Dose Route Start Last Admin Trade Name Freq PRN Reason Stop Dose Admin Sodium Chloride 8 ml 09/13/24 10:53 09/13/24 11:02 Sodium Chloride 0.9% 10ml Vial IV 10/13/24 10:52 8 ml NEEDED PRN Administration dilute pepcid Discontinued Medications Generic Name Dose Route Start Last Admin Trade Name Freq PRN Reason Stop Dose Admin Belladonna Alkaloids 60 ml 09/13/24 10:53 09/13/24 11:02 Belladonna Alkaloids 60 Ml Ml PO 09/13/24 10:54 60 ml ONCE ONE Administration Famotidine 20 mg 09/13/24 10:53 09/13/24 11:02 Famotidine 20mg/2ml Vial IV 09/13/24 10:54 20 mg ONCE ONE Administration Sodium Chloride 1,000 mls @ 999 mls/hr 09/13/24 11:00 09/13/24 11:00 Sod Chlor 0.9% 1000ml Bag IV 09/13/24 12:00 999 mls/hr .Q1H1M [place] Administration ORDERS Category Date Time Status CXR --portable [XR chest portable] Stat Exams 09/13/24 10:53 Completed POCUS Point of Care (ER Only) Stat Exams 09/13/24 10:55 Completed CBC w/Auto Diff [Complete Blood Count Auto Diff] Stat Lab 09/13/24 10:59 Completed CMP [Comprehensive Metabolic Panel] Stat Lab 09/13/24 10:59 Completed HCG Qualitative, Serum Stat Lab 09/13/24 10:59 Completed HIV Combo Stat Lab 09/13/24 10:59 Completed Hepatitis C Ab Qual. W/ RFX Stat Lab 09/13/24 10:59 Completed Lipase Stat Lab 09/13/24 10:59 Completed Trop I [Troponin I] Stat Lab 09/13/24 10:59 Completed Troponin I Q3H Lab 09/13/24 14:00 Ordered Troponin I Q3H Lab 09/13/24 17:00 Ordered ECG Data Tracing #1: I reviewed this ECG and interpreted as documented below: Ventricular to 169 no obvious discernible P waves Lind is normal no acute ischemic changes noted Tracing #2: I reviewed this ECG and interpreted as documented below: Ventricular to 150 we changed the parameters such that the timing interval was at 50 mm/s thus spreading out the EKG at this point we can see discernible P waves particularly in V3 this is consistent with sinus tachycardia no obvious delta wave or any other significant abnormality or arrhythmia noted Medical Decision Narrative: Patient with above history and physical differential includes pancreatitis GERD bowel obstruction hepatobiliary dysfunction etc. EKG initially was concerning for possible supraventricular tachycardia however patient was noted to have fluctuating rates and also seemed very anxious once the EKG was spread out changing the intervals it did demonstrate obvious P waves consistent with sinus tachycardia. Will give IV fluids GI cocktail as well as Pepcid as GERD is high in the differential in the situation. Cannot rule out a peptic ulcer which I discussed with the family at the moment. She may need a downstream scope depending on her workup today. Holding off on any CT imaging at the moment she has got a very benign abdominal exam and the radiation exposure at the moment I believe will outweigh any significant benefit patient is also very anxious but seem to calm down significantly after I had a good long conversation with her regarding the workup and plan. Right quadrant ultrasound was performed by myself which was unremarkable reassessment 1258 patient feeling much better without any symptoms at this point vital signs improved symptoms are consistent with GERD/peptic ulcer disease. She completely improved with GI cocktail and Pepcid and I recommended that she follow-up with Dr. Hernandez for an outpatient discussion of an EGD. Return precautions emphasized patient discharged in stable condition. Procedures Miscellaneous Procedure Procedure Performed: Limited RUQ ultrasound Indication: Abdominal pain Identified structures: -Gallbladder -Gallbladder wall -Common bile duct -Liver Findings: Normal gallbladder no evidence of obvious gallstones no sludge no pericholecystic fluid no sonographic Ruiz's anterior gallbladder wall is normal thickness common bile duct visualized which is Impression: Unremarkable right upper quadrant ultrasound Images were to permanent archive The study was technically adequate CPT 73356-33 This study was performed by me, and I personally interpreted all images/videos. Based on my clinical judgement, these images were adequate and did not necessitate further imaging. Critical Care Critical Care Time Critical Care Time: No
[2024-09-13] MEDS: 0.9 % SODIUM CHLORIDE 1000ML 1,000 ML 999 ML IV (11:00)
[2024-09-13] MEDS: BELLADONNA ALKALOIDS 60 ML ML PO (11:02)
[2024-09-13] MEDS: SODIUM CHLORIDE 0.9% 10ML VIAL 8 ML IV (11:02)
[2024-09-13] MEDS: FAMOTIDINE 20MG/2ML VIAL 20 MG IV (11:02)
[2024-09-13 11:04] VITALS: BP 139/86; PULSE 109; RESP 20; O2SAT 99
[2024-09-13 11:04] LABS: Hematocrit 38.2 % (37.0-47.0); Hemoglobin 13.3 g/dL (12.2-16.2); Immature Granulocytes % 0.3 %; Mean Corpuscular HGB Conc 34.8 g/dL (31.8-35.4); Mean Corpuscular Hemoglobin 30.0 pg (27.0-31.2); Mean Corpuscular Volume 86.2 fl (81-99); Nucleated Red Blood Cells % 0 %; Platelet Count 448 K/mm3 (142-424); Red Blood Count 4.43 M/mm3 (4.20-5.40); Red Cell Distribution Width-SD 37.6 fL; White Blood Count 12.7 K/mm3 (4.8-10.8)
[2024-09-13 11:10] LABS: Albumin Level 4.7 g/dl (3.5-5.0); Chloride 105 mmol/L (98-107); Sodium 137 mmol/L (136-145)
[2024-09-13 11:11] LABS: Potassium 3.7 mmoL/L (3.5-5.1)
[2024-09-13 11:13] LABS: Alanine Aminotransferase 15 U/L (12-78); Albumin/Globulin Ratio 1.6 (1.1-1.8); Alkaline Phosphatase 67 U/L (38-126); Anion Gap 10.7 mEq/L (5-15); Aspartate Amino Transferase 20 U/L (14-36); Bilirubin,Total 0.6 mg/dl (0.2-1.3); Blood Urea Nitrogen 6 mg/dl (7-17); Carbon Dioxide 25 mmol/L (22.0-30.0); Creatinine Clearance Estimated 234 mL/min (50-200); Creatinine,Serum 0.40 mg/dl (0.52-1.04); Estimated Glomerular Filt Rate 193 ml/min (>60); GFR (African American) 233 ML/MIN (>60); Globulin 2.9 g/dL (1.3-3.2); Lipase 139 U/L (23-300); Total Protein,Serum 7.6 g/dl (6.3-8.2)
[2024-09-13 11:14] LABS: Calcium 9.4 mg/dl (8.4-10.2); Glucose 124 mg/dl (74-100)
[2024-09-13 11:17] LABS: HCG Qualitative, Serum Negative (Negative)
[2024-09-13 11:30] VITALS: BP 123/75; PULSE 93; RESP 18; O2SAT 100
[2024-09-13 11:31] LABS: Troponin I < 0.01 ng/ml (0.00-0.034)
[2024-09-13 12:00] VITALS: BP 116/73; PULSE 106; RESP 20; O2SAT 100
[2024-09-13 12:09] LABS: Hepatitis C Ab Qual. W/ RFX NEGATIVE (Negative)
[2024-09-13 12:58] VITALS: BP 127/82; PULSE 95; RESP 16; TEMP 36.6
== END 2024-09-13 13:07 | disposition home or self-care (01) ==
PROVIDERS: Emergency Provider Student in an Organized Health Care Education/Training Program; PCP Nurse Practitioner Family
DX: R10.13 Epigastric pain (principal); K21.9 Gastro-esophageal reflux disease without esophagitis; R11.2 Nausea with vomiting, unspecified
CPT/HCPCS: 71045; 80053; 83690; 84484; 84703; 85025; 86803; 87389; 93005; 96361; 96374; 99285; J7030